=== PATIENT | female | born 1940 | race Caucasian/White ===

== ENCOUNTER → 2020-02-07 15:19 | Outpatient (BNVA) | payer MEDICARE, SELFPAY | PROVIDERS: PCP Internal Medicine; Referring Provider Internal Medicine; Visit Provider Nurse Practitioner Family | DX: Z01.818 Encounter for other preprocedural examination (principal) | CPT/HCPCS: 99212 ==

== ENCOUNTER 2020-02-08 09:47 | Outpatient (REF) | payer MEDICARE, SELFPAY ==
[2020-02-08 10:34] LABS: MANUAL DIFF FLAG NO
[2020-02-08 10:38] LABS: Basophils Percent Auto 0.7 % (0-2); Eosinophils Absolute Auto 0.2 X10*3/uL (0.0-0.4); Eosinophils Percent Auto 2.6 % (0-4); Hematocrit 32.7 % (37-47); Hemoglobin 10.5 g/dl (12.0-16.0); Imm Gran Abs Auto 0.08 X10*3/uL (0.00-0.03); Imm Gran Pct Auto 1.4 % (0.0-0.4); Lymphocytes Absolute Auto 1.6 X10*3/uL (1.2-4.9); Lymphocytes Percent Auto 27.2 % (20-40); Mean Corpuscular HGB Conc 32.1 g/dl (31.0-35.0); Mean Corpuscular Hemoglobin 30.9 pg (27.0-33.0); Mean Corpuscular Volume 96.2 fL (80-98); Mean Platelet Volume 10.3 fL (9.4-12.3); Monocytes Absolute Auto 0.7 X10*3/uL (0.1-1.2); Monocytes Percent Auto 11.3 % (2-11); Neutrophils Absolute Auto 3.3 X10*3/uL (2.0-8.3); Neutrophils Percent Auto 56.8 % (45-73); Platelet Count 197 X10*3/uL (160-400); White Blood Count 5.9 X10*3/uL (4.8-10.8)
[2020-02-08 11:03] LABS: Alanine Aminotransferase 13 U/L (0-31); Albumin Level 4.3 g/dL (3.5-5.0); Alkaline Phosphatase 61 U/L (39-117); Anion Gap 13 (12-20); Aspartate Amino Transferase 15 U/L (5-31); Bilirubin Total 0.4 mg/dL (0.0-1.0); Blood Urea Nitrogen 17 mg/dL (9-16); Calcium 8.4 mg/dL (8.4-10.2); Carbon Dioxide 25 mmol/L (22-29); Chloride 106 mmol/L (96-108); Cholesterol 168 mg/dL; Estimated Average Glucose 120 mg/dL; Estimated Glomerular Filt Rate 46; Glucose Fasting 105 mg/dL (60-99); HDL Cholesterol 40 mg/dL; Hemoglobin A1c % 5.8 %; LDL Cholesterol Calculated 76 mg/dl; Potassium 4.3 mmol/l (3.3-5.1); Sodium 140 mmol/L (135-145); Total Protein 7.3 g/dL (6.5-8.0); Triglycerides 263 mg/dL
[2020-02-08 11:06] LABS: Creatinine Urine 54.39 mg/dL
[2020-02-08 11:09] LABS: C Reactive Protein 0.18 mg/dL (< or = 0.50)
[2020-02-08 11:20] LABS: Erythrocyte Sedimentation Rate 38 MM/HR (0-20)
[2020-02-08 12:06] LABS: Reflex LDLD? No
[2020-02-14 21:37] LABS: Fructosamine 239 umol/L (205-285)
== END 2020-02-08 09:48 | disposition home or self-care (01) ==
LOC: HO.LAB 09:47
PROVIDERS: Absent Provider Nurse Practitioner Gerontology; PCP Internal Medicine; Visit Provider Student in an Organized Health Care Education/Training Program
DX: E78.00 Pure hypercholesterolemia, unspecified (principal); E11.9 Type 2 diabetes mellitus without complications; R53.82 Chronic fatigue, unspecified; M13.80 Other specified arthritis, unspecified site; M17.0 Bilateral primary osteoarthritis of knee; Z79.899 Other long term (current) drug therapy; E11.42 Type 2 diabetes mellitus with diabetic polyneuropathy
CPT/HCPCS: 36415; 80053; 80061; 82043; 82985; 83036; 85025; 85652; 86140

== ENCOUNTER 2020-03-09 09:03 | Outpatient (REF) | payer MEDICARE, SELFPAY ==
[2020-03-09 10:07] LABS: MANUAL DIFF FLAG NO
[2020-03-09 10:17] LABS: Basophils Percent Auto 0.4 % (0-2); Eosinophils Absolute Auto 0.2 X10*3/uL (0.0-0.4); Eosinophils Percent Auto 2.8 % (0-4); Hematocrit 34.7 % (37-47); Imm Gran Abs Auto 0.02 X10*3/uL (0.00-0.03); Imm Gran Pct Auto 0.4 % (0.0-0.4); Lymphocytes Absolute Auto 1.8 X10*3/uL (1.2-4.9); Lymphocytes Percent Auto 32.3 % (20-40); Mean Corpuscular HGB Conc 31.7 g/dl (31.0-35.0); Mean Corpuscular Hemoglobin 30.6 pg (27.0-33.0); Mean Corpuscular Volume 96.7 fL (80-98); Mean Platelet Volume 10.4 fL (9.4-12.3); Monocytes Absolute Auto 0.6 X10*3/uL (0.1-1.2); Monocytes Percent Auto 10.7 % (2-11); Neutrophils Absolute Auto 2.9 X10*3/uL (2.0-8.3); Neutrophils Percent Auto 53.4 % (45-73); Platelet Count 234 X10*3/uL (160-400); Red Blood Count 3.59 X10*6/uL (4.20-5.50); Red Cell Distribution Width 15.6 % (11.0-16.0); White Blood Count 5.4 X10*3/uL (4.8-10.8)
[2020-03-09 10:45] LABS: Alanine Aminotransferase 24 U/L (0-31); Albumin Level 4.4 g/dL (3.5-5.0); Alkaline Phosphatase 72 U/L (39-117); Anion Gap 13 (12-20); Aspartate Amino Transferase 25 U/L (5-31); Bilirubin Total 0.6 mg/dL (0.0-1.0); Blood Urea Nitrogen 19 mg/dL (9-16); C Reactive Protein 0.33 mg/dL (< or = 0.50); Calcium 9.5 mg/dL (8.4-10.2); Carbon Dioxide 27 mmol/L (22-29); Chloride 106 mmol/L (96-108); Estimated Glomerular Filt Rate 41; Glucose Random 100 mg/dL (60-115); Potassium 4.9 mmol/l (3.3-5.1); Sodium 141 mmol/L (135-145); Total Protein 7.6 g/dL (6.5-8.0)
[2020-03-09 10:58] LABS: Erythrocyte Sedimentation Rate 27 MM/HR (0-20)
== END 2020-03-09 09:04 | disposition home or self-care (01) ==
LOC: HO.LAB 09:03
PROVIDERS: PCP Internal Medicine; Visit Provider Student in an Organized Health Care Education/Training Program
DX: M13.80 Other specified arthritis, unspecified site (principal); Z79.899 Other long term (current) drug therapy
CPT/HCPCS: 36415; 80053; 85025; 85652; 86140

== ENCOUNTER 2020-03-21 12:40 | Outpatient (REF) | payer MEDICARE, SELFPAY ==
--- NOTE | 2020-03-21 12:44 | MM_ITS ---
EXAMINATION: MM SCREENING DIGITAL BREAST TOMOSYNTHESIS, BILATERAL CLINICAL INFORMATION: Screening. Asymptomatic. The lifetime risk of breast cancer based on the Tyrer-Cuzick Model is 2%. COMPARISON: Mammography: 08/28/2018, 08/13/2019 TECHNIQUE: Digital breast tomosynthesis is performed in both the craniocaudal and mediolateral oblique views along with computer-aided detection (CAD). Synthesized 2D images are generated from the tomosynthesis. FINDINGS: There are scattered areas of fibroglandular density (ACR BI-RADS breast composition Category b). There are no significant masses, abnormal calcifications, or other abnormalities. Parenchymal pattern is similar to prior studies. No developing density. Incidental bilateral vascular calcifications and several stable groups round calcifications again seen on the right. MM/MM tomosynthesis screening BI IMPRESSION: No significant changes from prior studies. ASSESSMENT: BI-RADS 2: Benign RECOMMENDATION: Routine annual mammography screening. This patient's information was entered into a reminder system with a target due date for their next mammogram.
== END 2020-03-21 12:41 | disposition home or self-care (01) ==
LOC: HO.MAMMO 12:40
PROVIDERS: PCP Internal Medicine; Visit Provider Internal Medicine
DX: Z12.31 Encounter for screening mammogram for malignant neoplasm of breast (principal)
CPT/HCPCS: 77063; 77067

== ENCOUNTER 2020-04-10 10:36 | Outpatient (REF) | payer MEDICARE, SELFPAY | END 2020-04-10 10:37 | disposition home or self-care (01) | LOC: HO.LAB 10:36 | PROVIDERS: Visit Provider Internal Medicine | DX: Z20.822 Contact with and (suspected) exposure to COVID-19 (principal) | CPT/HCPCS: 36415; C9803; U0003 ==

== ENCOUNTER 2020-05-15 11:40 | Outpatient (REF) | payer MEDICARE, SELFPAY ==
[2020-05-15 13:45] LABS: Anion Gap 15 (12-20); Blood Urea Nitrogen 34 mg/dL (9-16); Calcium 9.4 mg/dL (8.4-10.2); Carbon Dioxide 25 mmol/L (22-29); Chloride 104 mmol/L (96-108); Estimated Glomerular Filt Rate 30; Potassium 5.1 mmol/L (3.3-5.1); Sodium 139 mmol/L (135-145)
== END 2020-05-15 11:41 | disposition home or self-care (01) ==
LOC: HO.LAB 11:40
PROVIDERS: PCP Internal Medicine; Visit Provider Internal Medicine Hypertension Specialist
DX: E11.22 Type 2 diabetes mellitus with diabetic chronic kidney disease (principal); I13.10 Hypertensive heart and chronic kidney disease without heart failure, with stage 1 through stage 4 chronic kidney disease, or unspecified chronic kidney disease; N18.30 Chronic kidney disease, stage 3 unspecified
CPT/HCPCS: 36415; 80051; 82310; 82565; 84520

== ENCOUNTER 2020-05-30 06:23 | Day surgery (SDC) | payer MEDICARE, SELFPAY ==
--- NOTE | 2020-05-29 09:44 | HO.ANESPROP2 ---
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 (Acute) Seronegative rheumatoid arthritis (Acute) Type 2 diabetes mellitus with diabetic polyneuropathy (Acute) Essential hypertension (Acute) Hyperlipidemia LDL goal <100 (Acute) Past Medical History Medical History (Updated 05/29/20 @ 09:46 by Nabila Ott) Anemia of chronic disease Diabetes mellitus Essential hypertension GERD (gastroesophageal reflux disease) HTN (hypertension) Hypercholesteremia Hyperlipidemia LDL goal <100 Hypothyroid Osteoporosis Primary tongue squamous cell carcinoma Rheumatoid arthritis 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 Family History Family History Father Hx of colon cancer, stage IV Stomach cancer Mother Hypertension Maternal Aunt Vaginal cancer Surgical History Surgical History (Updated 05/25/20 @ 11:11 by Zaida Roberto) History of colonoscopy History of tubal ligation Hx of blepharoplasty Hx of cataract extraction Hx of hysterectomy Hx of squamous cell carcinoma excision Social History Social History Alcohol intake: never Smoking Status: Never smoker Second Hand Smoke Exposure: No Use of substances other than those prescribed or required for medical reasons: No Advance Directives: No Advance Directives Information Provided: Yes Meds Allergies Allergy/AdvReac Type Severity Reaction Status Date / Time ibuprofen Allergy Unknown Eye Verified 04/26/20 11:23 Swelling Home Medications Medication Instructions Recorded Confirmed Last Taken Type aspirin 81 mg tablet,delayed 81 mg PO DAILY 02/07/20 05/25/20 Unknown History release folic acid 1 mg tablet 1 mg PO DAILY 02/07/20 05/25/20 Unknown History trazodone 50 mg tablet 25 mg PO BEDTIME PRN 02/07/20 05/25/20 Unknown History bisacodyl 5 mg tablet,delayed 10 mg PO ONCE 02/18/20 04/26/20 Unknown History release methotrexate sodium 2.5 mg tablet 10 mg PO QWEEK tab 03/15/20 05/25/20 Unknown History Exam Exam Date and Time: May 29, 2020 0944 Pertinent Lab Results Pertinent Lab Results: Laboratory Tests 03/09/20 05/15/20 09:19 11:50 WBC 5.4 Hgb 11.0 L Hct 34.7 L Plt Count 234 Sodium 139 Potassium 5.1 Chloride 104 Carbon Dioxide 25 BUN 34 H D Creatinine 1.62 H Narrative Narrative: EKG 12/2019 NSR Assessment and Plan Assessment Anesthesia Assessment: Chart Reviewed Documented by User: Geri García 05/30/20 07:14 [facility] Past Medical History Medical History (Updated 05/29/20 @ 09:46 by Nabila Ott) Anemia of chronic disease Diabetes mellitus Essential hypertension GERD (gastroesophageal reflux disease) HTN (hypertension) Hypercholesteremia Hyperlipidemia LDL goal <100 Hypothyroid Osteoporosis Primary tongue squamous cell carcinoma Rheumatoid arthritis 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 Family History Family History Father Hx of colon cancer, stage IV Stomach cancer Mother Hypertension Maternal Aunt Vaginal cancer Surgical History Surgical History (Updated 05/25/20 @ 11:11 by Zaida Roberto) History of colonoscopy History of tubal ligation Hx of blepharoplasty Hx of cataract extraction Hx of hysterectomy Hx of squamous cell carcinoma excision Social History Social History Alcohol intake: never Smoking Status: Never smoker Second Hand Smoke Exposure: No Use of substances other than those prescribed or required for medical reasons: No Advance Directives: No Advance Directives Information Provided: Yes Meds Allergies Allergy/AdvReac Type Severity Reaction Status Date / Time ibuprofen Allergy Unknown Eye Verified 04/26/20 11:23 Swelling Home Medications Medication Instructions Recorded Confirmed Last Taken Type aspirin 81 mg tablet,delayed 81 mg PO DAILY 02/07/20 05/25/20 Unknown History release folic acid 1 mg tablet 1 mg PO DAILY 02/07/20 05/25/20 Unknown History trazodone 50 mg tablet 25 mg PO BEDTIME PRN 02/07/20 05/25/20 Unknown History bisacodyl 5 mg tablet,delayed 10 mg PO ONCE 02/18/20 04/26/20 Unknown History release methotrexate sodium 2.5 mg tablet 10 mg PO QWEEK tab 03/15/20 05/25/20 Unknown History Exam Airway Mallampati Class: II TM Dist: >3cm Neck ROM: Full Denture: Upper Heart: RRR Lungs: CTA BL Assessment and Plan Assessment Anesthesia Assessment: Anesthesia Plan Discussed Final Anesthetic Review NPO: Yes ASA Class: II Final Preanesthetic Review: No Changes in Pt Med Stat and Consent Obtained/Reviewed Patient Risk: Intermediate Procedure Risk: Intermediate Anesthetic Plan Anesthetic Plan: MAC: Disposition: Standard PACU
[2020-05-30 06:49] VITALS: BP 167/72; PULSE 84; RESP 18; TEMP 36.9; O2SAT 99; BMI 27.6
[2020-05-30 07:05] LABS: Glucose, Whole Blood 103 mg/dL (60-115)
--- NOTE | 2020-05-30 07:16 | W.PM.OPN ---
Operative Note Operative Note Date of Service: 05/30/20 Narrative: Pre-op diagnosis: Colon cancer screening Post-op diagnosis: other (Colon polyps, diverticulosis, hemorrhoids) Procedure: COLONOSCOPY TILL CECUM WITH BIOPSIES AND SNARE POLYPECTOMY Consent: Indications for the procedure and potential complications of bleeding, perforation, reaction to medications and missed diagnosis were discussed with the patient and informed consent was obtained. Instrument: Olympus PCF H 190 L variable stiffness pediatric colonoscope Monitoring: Vital signs and clinical assessment, intermittent blood pressure monitoring, continuous EKG monitoring, Pulse oximetry and Carbon Dioxide monitoring were done throughout the procedure. Colon withdrawl time was 18 minutes. Procedure: The patient was placed in the left lateral decubitis position and pre-procedure medications were administered. After a digital rectal examination of the ano-rectum, the video colonoscope was inserted into the rectum and advanced through the colon to the cecum. The colonoscope was slowly withdrawn in a retrograde panoramic fashion and the colon mucosa was carefully examined including a retroflexed view of the rectum. Findings and interventions are described below. Procedure Difficulty: There was narrowing due to severe diverticulosis with narrowing/spasm at 25-30 cm which was navigated with some difficulty. Patient was placed in the supine position which allowed scope passage through the area of narrowing. Findings: Terminal Ileum: Not evaluated Cecum: A 9-10 mm sessile polyp removed with a cold snare - polyp was not retrieved. Four 3-6 mm diminutive appearing polyps removed with the cold biopsy. Ascending Colon: Normal Transverse Colon: Normal Descending Colon: Moderate diverticulosis. Sigmoid Colon: A 4-5 mm diminutive appearing polyp removed with cold biopsy. Severe diverticulosis with luminal narrowing. Rectum: Normal Ano-rectum: Moderate internal hemorrhoids and perianal skin tags. Colon preparation: Good after some irrigation Impression and Post Procedure Diagnosis: Colonoscopy Findings: Six small polyps removed - 1 polyp was not retrieved. Moderate to severe diverticulosis seen in the left colon Moderate hemorrhoids on retroflexed exam. Plan: Await pathology results Patient has an appointment on 06/13/20 in the [facility] with Marisol Medina FNP-AYSE. Repeat Colonoscopy interval based on path results - in 3-5 years if polyps are adenomatous and 10 years if polyps are hyperplastic. Above findings were reviewed with the patient and colon polyps and diverticulosis handouts were given in the discharge area Surgeon: Radha Parish MD Anesthesia: MAC (Dr Nelson) Estimated blood loss (mL): 0 Pathology: other (A. Cecal polyps x 4, B. SC polyp x 1) Condition: stable Disposition: PACU
--- NOTE | 2020-05-30 07:16 | MHC.SHP ---
Pre-Procedural Eval Section A The patient is an INPATIENT: No The History & Physical has been completed within 30 days and I have reviewed it.: No Section B Chief Complaint: screening Details of Present Illness: Colon cancer screening, family history of colon cancer Relevant Family History (Specify if Yes): Yes Relevant Social History: None Present Medications: see Short Stay Collaborative assessment Medical History: Significant History (Diabetes mellitus HTN (hypertension) Hypercholesteremia Primary tongue squamous cell carcinoma) History of Previous Operations: Relevant previous surgery/procedure and date(s) (Colonoscopy, tongue surgery) Allergies: Allergies Allergy/AdvReac Type Severity Reaction Status Date / Time ibuprofen Allergy Unknown Eye Verified 04/26/20 11:23 Swelling Review of Systems Sugical H&P ROS: Negative: Constitution, Cardiovascular, Respiratory and Gastrointestinal Exam Surgical H&P Exam: Normal: Heart, Normal: Lungs, Normal: Extremities and Normal: Abdomen Plan Diagnosis/Plan: Unchanged I have reviewed the history and physical and performed a pertinent physical examination on my patient. No changes have occurred unless specified.
[2020-05-30] MEDS: Lactated Ringers 1,000 ML 100 ML IVCONT (07:34)
[2020-05-30 08:23] VITALS: BP 101/55; PULSE 76; RESP 16; TEMP 36.4; O2SAT 99
[2020-05-30 08:38] VITALS: BP 126/74; PULSE 72; RESP 18; TEMP 36.4; O2SAT 100
== END 2020-05-30 09:20 | disposition home or self-care (01) ==
PROVIDERS: PCP Internal Medicine; Visit Provider Internal Medicine Gastroenterology
PROC: 0DJD8ZZ Inspection of Lower Intestinal Tract, Via Natural or Artificial Opening Endoscopic (ICD-10-PCS; CPT 45378; principal; 2020-05-30 07:30)
DX: Z12.11 Encounter for screening for malignant neoplasm of colon (principal); Z80.0 Family history of malignant neoplasm of digestive organs; D12.0 Benign neoplasm of cecum; K63.5 Polyp of colon; K57.30 Diverticulosis of large intestine without perforation or abscess without bleeding; K64.8 Other hemorrhoids; K64.4 Residual hemorrhoidal skin tags; E11.9 Type 2 diabetes mellitus without complications; D63.8 Anemia in other chronic diseases classified elsewhere; I10 Essential (primary) hypertension; K21.9 Gastro-esophageal reflux disease without esophagitis; C02.9 Malignant neoplasm of tongue, unspecified; M06.00 Rheumatoid arthritis without rheumatoid factor, unspecified site; Z79.84 Long term (current) use of oral hypoglycemic drugs; Z79.82 Long term (current) use of aspirin; Z79.899 Other long term (current) drug therapy
CPT/HCPCS: 45385; 45380; 82947; 88305

== ENCOUNTER 2020-06-02 21:01 | Emergency (ER) | payer MEDICARE, SELFPAY ==
[2020-06-02 21:19] VITALS: BP 185/91; PULSE 94; RESP 16; TEMP 37; O2SAT 99; BMI 29.4
[2020-06-02 22:33] VITALS: BP 165/79; PULSE 82; RESP 16; O2SAT 100
--- NOTE | 2020-06-02 22:42 | ECG_ITS ---
Test Reason : CHEST PAIN Blood Pressure : / mmHG Vent. Rate : 092 BPM Atrial Rate : 092 BPM P-R Int : 168 ms QRS Dur : 096 ms QT Int : 346 ms P-R-T Axes : 050 -06 041 degrees QTc Int : 427 ms Normal sinus rhythm Possible Left atrial enlargement Left ventricular hypertrophy Abnormal ECG When compared to the previous EKG of No significant changes seen Referred By: Mihaela De La Rosa Electronically Signed By:VITALY TEJEDA MD
--- NOTE | 2020-06-02 22:44 | ED.CHESTPAIN ---
HPI - Chest Pain General Chief Complaint: Chest Pain Stated Complaint: nausea,shaking Time Seen by Provider: 06/02/20 22:14 Source: patient Mode of arrival: ambulatory Limitations: no limitations History of Present Illness HPI narrative: Appearance: Alert. Oriented X3. No acute distress. Eyes: Pupils equal, round and reactive to light. ENT: Pharynx normal. Neck: Normal inspection. Neck supple. No lymph nodes noted. No crepitus CVS: Normal heart rate and rhythm. Pulses normal. Normal S1 and S2 Respiratory: No respiratory distress. Breath sounds normal. No Wheezing. No rales Abdomen: Soft and nontender. No rigidity. No distention. good BS x4 Skin: Skin warm and dry. Normal skin color. Normal skin turgor. Extremities: No lower extremity edema. No lower extremity edema. No Lacerations. No Rash Neuro: Oriented X 3. No motor deficit. No sensory deficit. Moving all extermities. No slurred speech.Patient comes to the emergency room complaining of sharp intermittent chest pain. Patient states around 20:00 she had multiple episodes of sharp chest pain. Patient states it feels like something poked her in the chest on the left side, lasted for a few seconds and it self-resolved. At this time, patient has no symptoms. Patient denies diaphoresis, no shortness of breath, no abdominal pain. Related Data Home Medications Medication Instructions Recorded Confirmed aspirin 81 mg tablet,delayed 81 mg PO DAILY 02/07/20 05/25/20 release folic acid 1 mg tablet 1 mg PO DAILY 02/07/20 05/25/20 trazodone 50 mg tablet 25 mg PO BEDTIME PRN 02/07/20 05/25/20 methotrexate sodium 2.5 mg tablet 10 mg PO QWEEK tab 03/15/20 05/25/20 Previous Rx's Medication Instructions Recorded metformin 500 mg tablet 500 mg PO DAILY #90 tab 02/18/20 acetaminophen 325 mg tablet 325 mg PO Q6H PRN #120 tab 02/24/20 etanercept 50 mg/mL (1 mL) 50 mg SUBCUT QWEEK #4 ml 03/07/20 subcutaneous pen injector omeprazole 20 mg capsule,delayed 20 mg PO DAILY #90 cap 04/13/20 release atorvastatin 10 mg tablet 10 mg PO QPM 90 Days #90 tab 04/26/20 ferrous sulfate 325 mg (65 mg 325 mg PO DAILY 90 Days #90 tab 04/26/20 iron) tablet,delayed release lisinopril 40 mg tablet 40 mg PO DAILY #90 tab 04/26/20 Allergies Allergy/AdvReac Type Severity Reaction Status Date / Time ibuprofen Allergy Unknown Eye Verified 04/26/20 11:23 Swelling Review of Systems Review of Systems: Constitutional : No Weight loss, No Fever, No Chills, No Night Sweats, No Fatigue, No Malaise ENT/Mouth : No Hearing loss, No Ear Pain, No Nasal Congestion, No Sinus Pain, No Hoarseness, No sore throat, No Rhinorrhea, No Swallowing Difficulty Eyes: No Eye Pain, No Swelling, No Redness, No Foreign Body, No Discharge, No Vision Changes Cardiovascular : Complaining of multiple episodes of sharp chest pain, nonradiating, lasting a few seconds, No SOB, No Dyspnea on Exertion, No Orthopnea, No Edema, No Palpitations Respiratory : No Cough, No Sputum, No Wheezing, No Smoke Exposure, No Dyspnea Gastrointestinal : No Nausea, No Vomiting, No Diarrhea, No Constipation, No abdominal Pain, No Hematochezia, No Melena Genitourinary : no irregular bleeding, No Dysuria, No Urinary Frequency, No Hematuria, No Urinary Incontinence, No Urgency, No Flank Pain, No Urinary Flow Changes, No Hesitancy Musculoskeletal : No joint pain, No Myalgias, No Joint Swelling Skin : No Skin Lesions, No rash Neuro : No Weakness, No Numbness, No Paresthesias, No Loss of Consciousness, No Dizziness, No Headache Psych : No Anxiety/Panic, No Depression, No SI/HI/AH/VH, No Social Issues, Heme/Lymph: No Bruising, No Bleeding,No Lymphadenopathy Endocrine : No Polyuria, No Polydipsia, No Temperature Intolerance [facility] Past Medical History Medical History Anemia of chronic disease Diabetes mellitus Essential hypertension GERD (gastroesophageal reflux disease) HTN (hypertension) Hypercholesteremia Hyperlipidemia LDL goal <100 Hypothyroid Osteoporosis Primary tongue squamous cell carcinoma Rheumatoid arthritis 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 Surgical History History of colonoscopy History of tubal ligation Hx of blepharoplasty Hx of cataract extraction Hx of hysterectomy Hx of squamous cell carcinoma excision Family History Family History Father Hx of colon cancer, stage IV Stomach cancer Mother Hypertension Maternal Aunt Vaginal cancer Social History Social History Alcohol intake: never Smoking Status: Never smoker Second Hand Smoke Exposure: No Advance Directives: No Advance Directives Information Provided: Yes Physical Exam Vital Signs: Vital Signs: Last Vital Signs Temp 98.6 F 06/02/20 21:19 Pulse 82 06/02/20 22:33 Resp 16 06/02/20 22:33 BP 165/79 H 06/02/20 22:33 Pulse Ox 100 06/02/20 22:33 Body Mass Index 29.4 Appearance: Alert. Oriented X3. No acute distress. Mildly anxious Eyes: Pupils equal, round and reactive to light. ENT: Pharynx normal. Neck: Normal inspection. Neck supple. No lymph nodes noted. No crepitus CVS: Normal heart rate and rhythm. Pulses normal. Normal S1 and S2 Respiratory: No respiratory distress. Breath sounds normal. No Wheezing. No rales Abdomen: Soft and nontender. No rigidity. No distention. good BS x4 Skin: Skin warm and dry. Normal skin color. Normal skin turgor. Extremities: No lower extremity edema. No lower extremity edema. No Lacerations. No Rash Neuro: Oriented X 3. No motor deficit. No sensory deficit. Moving all extermities. No slurred speech. Course Course Course Narrative: Patient's initial troponin 6.0, no EKG changes. Patient's troponin number the 2 scheduled at 02:00. Until now, patient remains asymptomatic. sign out given to Dr. Cayla YEN - Chest Pain Lab Data Result diagrams: 06/02/20 22:58 06/02/20 22:58 Labs: Lab Results 06/02/20 06/02/20 06/02/20 Range/Units 22:58 22:58 22:58 WBC 6.5 (4.8-10.8) X10*3/uL RBC 3.60 L (4.20-5.50) X10*6/uL Hgb 10.9 L (12.0-16.0) g/dl Hct 33.5 L (37-47) % MCV 93.1 (80-98) fL MCH 30.3 (27.0-33.0) pg MCHC 32.5 (31.0-35.0) g/dl RDW 14.7 (11.0-16.0) % Plt Count 195 (160-400) X10*3/uL MPV 10.2 (9.4-12.3) fL Immature Gran % (Auto) 0.3 (0.0-0.4) % Neut % (Auto) 64.5 (45-73) % Lymph % (Auto) 21.1 (20-40) % Franklin % (Auto) 11.6 H (2-11) % Eos % (Auto) 2.2 (0-4) % Baso % (Auto) 0.3 (0-2) % Lymph # (Auto) 1.4 (1.2-4.9) X10*3/uL Franklin # (Auto) 0.8 (0.1-1.2) X10*3/uL Eos # (Auto) 0.1 (0.0-0.4) X10*3/uL Baso # (Auto) 0.0 (0.0-0.2) X10*3/uL Abs Immat Gran (auto) 0.02 (0.00-0.03) X10*3/uL Absolute Neuts (auto) 4.2 (2.0-8.3) X10*3/uL Absolute Nucleated RBC 0.000 (0.0-0.012) X10*3/uL Nucleated RBC % (auto) 0.0 (0.0-0.2) /100WBC PT 12.5 (10.8-13.0) SEC INR 1.1 (0.9-1.1) Sodium 140 (135-145) mmol/L Potassium 5.1 (3.3-5.1) mmol/L Chloride 106 (96-108) mmol/L Carbon Dioxide 25 (22-29) mmol/L Anion Gap 14 (12-20) BUN 20 H (9-16) mg/dL Creatinine 1.20 (0.5-1.4) mg/dL Estim Creat Clear Calc 34.3 Estimated GFR 43 Random Glucose 103 (60-115) mg/dL Calcium 9.2 (8.4-10.2) mg/dL Troponin I High Sens (<3.5-17.0) ng/L 06/02/20 Range/Units 22:59 WBC (4.8-10.8) X10*3/uL RBC (4.20-5.50) X10*6/uL Hgb (12.0-16.0) g/dl Hct (37-47) % MCV (80-98) fL MCH (27.0-33.0) pg MCHC (31.0-35.0) g/dl RDW (11.0-16.0) % Plt Count (160-400) X10*3/uL MPV (9.4-12.3) fL Immature Gran % (Auto) (0.0-0.4) % Neut % (Auto) (45-73) % Lymph % (Auto) (20-40) % Franklin % (Auto) (2-11) % Eos % (Auto) (0-4) % Baso % (Auto) (0-2) % Lymph # (Auto) (1.2-4.9) X10*3/uL Franklin # (Auto) (0.1-1.2) X10*3/uL Eos # (Auto) (0.0-0.4) X10*3/uL Baso # (Auto) (0.0-0.2) X10*3/uL Abs Immat Gran (auto) (0.00-0.03) X10*3/uL Absolute Neuts (auto) (2.0-8.3) X10*3/uL Absolute Nucleated RBC (0.0-0.012) X10*3/uL Nucleated RBC % (auto) (0.0-0.2) /100WBC PT (10.8-13.0) SEC INR (0.9-1.1) Sodium (135-145) mmol/L Potassium (3.3-5.1) mmol/L Chloride (96-108) mmol/L Carbon Dioxide (22-29) mmol/L Anion Gap (12-20) BUN (9-16) mg/dL Creatinine (0.5-1.4) mg/dL Estim Creat Clear Calc Estimated GFR Random Glucose (60-115) mg/dL Calcium (8.4-10.2) mg/dL Troponin I High Sens 6.0 (<3.5-17.0) ng/L ECG Data ECG #1: Attestation: I personally reviewed and interpreted this ECG as follows: (Sinus rhythm, heart rate 92, no ST segment depressions or elevations, no T-wave inversions, QTC 427) Discharge Plan Discharge Clinical Impression: Atypical chest pain Patient Disposition: Home, Self-Care Instructions: Chest Pain (ED) Additional Instructions: If you continue having chest pain, you may need a stress test. Please follow-up with your primary care physician tomorrow. If you have any worsening or new symptoms, please return to the emergency room or call 911 Prescriptions: No Action acetaminophen 325 mg tablet 325 mg PO Q6H PRN (Reason: pain) Qty: 120 RF: 2 Enbrel SureClick 50 mg/mL (1 mL) pen injector 50 mg subcut QWEEK Qty: 4 RF: 3 omeprazole 20 mg capsule,delayed release(DR/EC) 20 mg PO DAILY Qty: 90 RF: 1 atorvastatin 10 mg tablet 10 mg PO QPM 90 Days Qty: 90 RF: 3 ferrous sulfate 325 mg (65 mg iron) tablet,delayed release (DR/EC) 325 mg PO DAILY 90 Days Qty: 90 RF: 3 lisinopril 40 mg tablet 40 mg PO DAILY Qty: 90 RF: 3 metformin 500 mg tablet 500 mg PO DAILY Qty: 90 RF: 1 methotrexate sodium 2.5 mg tablet 10 mg PO QWEEK RF: 0 folic acid 1 mg tablet 1 mg PO DAILY RF: 0 aspirin [Adult Low Dose Aspirin] 81 mg tablet,delayed release (DR/EC) 81 mg PO DAILY RF: 0 trazodone 50 mg tablet 25 mg PO BEDTIME PRN (Reason: Sleep) RF: 0
[2020-06-02 23:05] LABS: MANUAL DIFF FLAG NO
[2020-06-02 23:07] LABS: Basophils Percent Auto 0.3 % (0-2); Eosinophils Absolute Auto 0.1 X10*3/uL (0.0-0.4); Eosinophils Percent Auto 2.2 % (0-4); Hematocrit 33.5 % (37-47); Hemoglobin 10.9 g/dl (12.0-16.0); Imm Gran Abs Auto 0.02 X10*3/uL (0.00-0.03); Imm Gran Pct Auto 0.3 % (0.0-0.4); Lymphocytes Absolute Auto 1.4 X10*3/uL (1.2-4.9); Lymphocytes Percent Auto 21.1 % (20-40); Mean Corpuscular HGB Conc 32.5 g/dl (31.0-35.0); Mean Corpuscular Hemoglobin 30.3 pg (27.0-33.0); Mean Corpuscular Volume 93.1 fL (80-98); Mean Platelet Volume 10.2 fL (9.4-12.3); Monocytes Absolute Auto 0.8 X10*3/uL (0.1-1.2); Monocytes Percent Auto 11.6 % (2-11); Neutrophils Absolute Auto 4.2 X10*3/uL (2.0-8.3); Neutrophils Percent Auto 64.5 % (45-73); Platelet Count 195 X10*3/uL (160-400); Red Cell Distribution Width 14.7 % (11.0-16.0); White Blood Count 6.5 X10*3/uL (4.8-10.8)
[2020-06-02 23:17] LABS: INTERNATIONAL NORM RATIO 1.1 (0.9-1.1); Prothrombin Time 12.5 SEC (10.8-13.0)
[2020-06-02 23:35] LABS: Anion Gap 14 (12-20); Blood Urea Nitrogen 20 mg/dL (9-16); Calcium 9.2 mg/dL (8.4-10.2); Carbon Dioxide 25 mmol/L (22-29); Chloride 106 mmol/L (96-108); Creatinine Clr Calc Pharmacy 34.3; Estimated Glomerular Filt Rate 43; Glucose Random 103 mg/dL (60-115); Potassium 5.1 mmol/L (3.3-5.1); Sodium 140 mmol/L (135-145)
[2020-06-03] VITALS: BP 151/86; PULSE 84; RESP 17; O2SAT 99
[2020-06-03] MEDS: Aspirin Enteric Coated 325 MG TABLET.DR PO (00:53)
[2020-06-03 02:00] VITALS: BP 146/80; PULSE 66; RESP 20; TEMP 36.7; O2SAT 98
[2020-06-03 02:55] LABS: Glucose Urine UA NEG (NEG); Leukocyte Esterase Urine TRACE (NEG); Nitrite Urine NEG (NEG); PH 6.5 (5.0-8.0); UACC Culture Trigger YES; Urine Blood TRACE (NEG); Urine Ketones NEG (NEG); Urine Protein TRACE MG/DL (NEG-TRACE)
[2020-06-03 02:57] LABS: Appearance Urine CLEAR; Color Urine STRAW
[2020-06-03 03:16] LABS: Troponin-I High Sensitivity 6.4 ng/L (<3.5-17.0)
[2020-06-03 03:42] LABS: Bacteria Urine TRACE /LPF; RBC Urine 0-2 /HPF (0); Squamous Epithelial Cell Urine 2+ /LPF; UACC CULT YES; WBC Urine 0-2 /HPF (0-4)
[2020-06-03 04:00] VITALS: BP 150/70; PULSE 70; RESP 16; O2SAT 97
== END 2020-06-03 05:55 | disposition home or self-care (01) ==
PROVIDERS: Emergency Provider Emergency Medicine; PCP Internal Medicine
DX: R07.9 Chest pain, unspecified (principal); E11.9 Type 2 diabetes mellitus without complications; I10 Essential (primary) hypertension; E78.5 Hyperlipidemia, unspecified; K21.9 Gastro-esophageal reflux disease without esophagitis
CPT/HCPCS: 36415; 80048; 81001; 84484; 85025; 85610; 87086; 93005; 99283; 99284

== ENCOUNTER → 2020-06-13 13:26 | Outpatient (BNVA) | payer MEDICARE, SELFPAY | PROVIDERS: PCP Internal Medicine; Visit Provider Nurse Practitioner Family | DX: Z13.89 Encounter for screening for other disorder (principal) | CPT/HCPCS: Q3014 ==

== ENCOUNTER → 2020-07-05 14:21 | Outpatient (BNVA) | payer MEDICARE, SELFPAY | PROVIDERS: PCP Internal Medicine; Visit Provider Internal Medicine Cardiovascular Disease | DX: I10 Essential (primary) hypertension (principal); R00.2 Palpitations | CPT/HCPCS: 93005; 99202 ==

== ENCOUNTER → 2020-07-14 10:16 | Outpatient (BNVA) | payer MEDICARE, SELFPAY | PROVIDERS: Visit Provider Student in an Organized Health Care Education/Training Program | DX: M06.00 Rheumatoid arthritis without rheumatoid factor, unspecified site (principal); Z79.899 Other long term (current) drug therapy | CPT/HCPCS: 99212 ==

== ENCOUNTER 2020-08-11 11:17 | Outpatient (REF) | payer MEDICARE, SELFPAY ==
[2020-08-11 13:25] LABS: MANUAL DIFF FLAG NO
[2020-08-11 13:30] LABS: Basophils Percent Auto 0.7 % (0-2); Eosinophils Absolute Auto 0.1 X10*3/uL (0.0-0.4); Eosinophils Percent Auto 1.7 % (0-4); Hematocrit 35.9 % (37-47); Hemoglobin 11.5 g/dl (12.0-16.0); Imm Gran Abs Auto 0.02 X10*3/uL (0.00-0.03); Imm Gran Pct Auto 0.4 % (0.0-0.4); Lymphocytes Absolute Auto 1.5 X10*3/uL (1.2-4.9); Lymphocytes Percent Auto 27.2 % (20-40); Mean Corpuscular Hemoglobin 30.5 pg (27.0-33.0); Mean Corpuscular Volume 95.2 fL (80-98); Mean Platelet Volume 10.7 fL (9.4-12.3); Monocytes Absolute Auto 0.5 X10*3/uL (0.1-1.2); Monocytes Percent Auto 9.7 % (2-11); Neutrophils Absolute Auto 3.3 X10*3/uL (2.0-8.3); Neutrophils Percent Auto 60.3 % (45-73); Platelet Count 229 X10*3/uL (160-400); Red Blood Count 3.77 X10*6/uL (4.20-5.50); White Blood Count 5.5 X10*3/uL (4.8-10.8)
[2020-08-11 14:01] LABS: Alanine Aminotransferase 21 U/L (0-31); Albumin Level 4.6 g/dL (3.5-5.0); Alkaline Phosphatase 72 U/L (39-117); Anion Gap 16 (12-20); Aspartate Amino Transferase 16 U/L (5-31); Bilirubin Total 0.5 mg/dL (0.0-1.0); Blood Urea Nitrogen 30 mg/dL (9-16); C Reactive Protein 0.21 mg/dL (< or = 0.50); Calcium 10.5 mg/dL (8.4-10.2); Carbon Dioxide 25 mmol/L (22-29); Chloride 104 mmol/L (96-108); Estimated Glomerular Filt Rate 37; Glucose Random 90 mg/dL (60-115); Sodium 140 mmol/L (135-145); Total Protein 7.9 g/dL (6.5-8.0)
[2020-08-11 14:02] LABS: Anion Gap 14 (12-20); Blood Urea Nitrogen 29 mg/dL (9-16); Calcium 10.7 mg/dL (8.4-10.2); Carbon Dioxide 26 mmol/L (22-29); Chloride 104 mmol/L (96-108); Estimated Glomerular Filt Rate 38; Phosphorus 4.3 mg/dL (2.7-4.5); Potassium 5.1 mmol/L (3.3-5.1); Sodium 139 mmol/L (135-145)
[2020-08-11 14:18] LABS: Erythrocyte Sedimentation Rate 30 MM/HR (0-20)
[2020-08-14 13:16] LABS: Calcium (PTHI) 10.7 mg/dL (8.6-10.4); PTHI 25 pg/mL (14-64)
== END 2020-08-11 11:18 | disposition home or self-care (01) ==
LOC: HO.LAB 11:17
PROVIDERS: Student in an Organized Health Care Education/Training Program; Absent Provider Internal Medicine; PCP Internal Medicine; Referring Provider Internal Medicine Hypertension Specialist; Visit Provider Nurse Practitioner Gerontology
DX: M06.00 Rheumatoid arthritis without rheumatoid factor, unspecified site (principal); N18.31 Chronic kidney disease, stage 3a
CPT/HCPCS: 36415; 80051; 80053; 82310; 82565; 83970; 84100; 84520; 85025; 85652; 86140

== ENCOUNTER → 2020-08-18 12:54 | Outpatient (BNVA) | payer MEDICARE, SELFPAY | PROVIDERS: PCP Internal Medicine; Visit Provider Nurse Practitioner Gerontology | DX: E11.42 Type 2 diabetes mellitus with diabetic polyneuropathy (principal); E78.5 Hyperlipidemia, unspecified; I10 Essential (primary) hypertension | CPT/HCPCS: 82947; 99212 ==

== ENCOUNTER → 2020-08-25 09:22 | Outpatient (REF) | payer MEDICARE, SELFPAY ==
--- NOTE | 2020-08-25 09:26 | CA_ITS ---
Transthoracic Echocardiogram Patient (Last, First, Middle): Sydnee sU, Gender: Female Date of : 1940 Age: 80 Procedure Date: 08/25/2020 Procedure Type: Transthoracic Echocardiogram Location: OP Height: 157.48 cm Weight: 69.85 kg BSA: 1.71 m2 Heart Rate: bpm BP: 140 / 80 mmHg Home Inspector: TRISHA Loera MD: Estuardo Nye MD [employer]acing Supervisor: Arnaldo Leslie MD Symptoms: R00.2 - Palpitations Study Quality: Fair ECG Rhythm: Sinus Conclusions: - 1. Normal LV systolic function with impaired relaxation filling pattern 2. Fibrocalcific aortic valve and moderate mitral and calcification noted with normal cardiac valvular Doppler 3. Normal RV systolic pressure 4. No gross pericardial effusion Findings Left Ventricle Normal left ventricular size, thickness, and systolic function. The visually estimated ejection fraction is between 55-60%. Spectral Doppler is indicative of an impaired relaxation filling pattern. E/E prime ratio is between 8 and 15 consistent with indeterminate filling pressures. Right Ventricle Normal right ventricular cavity size and systolic function. Atria The left atrium is likely dilated. There is no evidence of interatrial shunt. The right atrium is normal in size. Aortic Valve There is mild calcification of the aortic valve. There is no aortic valve stenosis. There is no aortic valve regurgitation. Mitral Valve There is mild anterior and moderate posterior mitral leaflet thickening. There is moderate mitral annular calcification. There is trace mitral valve regurgitation. There is no mitral valve stenosis. Pulmonic Valve The pulmonic valve is likely normal. There is trace to mild pulmonic valve regurgitation. Tricuspid Valve Normal tricuspid valve structure. There is trace tricuspid valve regurgitation. The right ventricular systolic pressure is normal. The right ventricular systolic pressure is 29 mmHg. Normal right atrial pressure. There is no evidence of pulmonary hypertension. Great Vessels All visible segments of the aorta are normal in size. The pulmonary artery was not well visualized. Venous The inferior vena cava is normal in size and collapses greater than 50% with inspiration. Pericardium/Pleural There is no evidence of pericardial effusion. Prior Study Comparison No prior study available for comparison. Measurements 2D Linear Measurements IVSd: 1.16 0.6-0.9/0.6-1.0 cm LVIDd: 4.12 3.9-5.3/4.2-5.9 cm LVIDd Index: 2.41 2.4-3.2/2.2-3.1 cm/m2 LVIDs: 2.59 2.0-3.6 cm LVPWd: 1.16 0.7-1.1 cm Ao Root: 3.20 2.1-3.5 cm LA Diam: 3.30 2.7-3.8/3.0-4.0 cm LAIDs Index: 1.93 1.5-2.3 cm/m2 LV Mass: 205.04 67-162/88-224 g LV Mass Index: 119.91 43-95/49-115 g/m2 LVOT Diam: 2.00 3.0+(-)1.3 cm 2D Systolic Function EF 4C: 59.90 >55% EF 2C: 51.30 >55% Mitral Valve MV Pk E: 0.56 MV PK A: 0.94 MV Decel Time: 227.00 E/A: 0.60 E'Lateral: 6.42 E'Medial: 3.59 E/E' Med: 15.70 E/E' Lat: 8.80 PHT: 67.00 MVA PHT: 3.28 Decel Ocean: 2.48 Aortic Valve AoV Pk Ivan: 1.66 AoV Mn Ivan: 1.09 AoV VTI: 0.31 AoV Pk Grad: 11.00 Aov Mn Grad: 5.00 FORD Cont.VTI: 2.05 LVOT LVOT Pk Ivan: 1.06 LVOT Mn Ivan: 0.73 LVOT VTI: 0.20 LVOT Pk Grad: 4.00 LVOT Mn Grad: 2.00 LVOT Diam: 2.00 LVOT Area: 3.14 Diastolic Function MV Pk E: 0.56 MV Pk A: 0.94 E/A: 0.60 E'Medial: 3.59 E/E' Med: 15.70 E' Laterial: 6.42 E/E' Lat: 8.80 Tricuspid Valve TR Pk Ivan: 2.54 TR Pk Grad: 26.00 RA Press: 3.00 RVSP: 29.00 Great Vessels Aorta Ao Root-2D: 3.20 2.0-3.7 cm Ao Asc: 3.40 2.1-3.4 cm Ao Arch: 2.80 Updated in Other Vendor System with Status of Final Arnaldo Leslie MD electronically signed on 08/26/2020 12:28:16 PM with status of Final
--- NOTE | 2020-08-25 09:30 | ECG_ITS ---
Hook-up date: 2020-08-25 10:33:00 Duration: 47:59:00 Test Indications: PALPITATIONS Medications: 984112 QRS complexes 101 Ventricular ectopics which represent <1 % of total QRS comp. 332 Supraventricular ectopics which represent <1 % of total QRS comp. * Paced QRS complexs which represent % of total QRS comp. VENTRICULAR ECTOPY 101 Isolated 0 Bigeminal Cycles 0 Couplets 0 Runs 0 Beats in Runs * Beats LONGEST at * BPM at :: -- * Beats FASTEST at * BPM at :: -- SUPRAVENTRICULAR ECTOPY 291 Isolated 17 Couplets 2 Runs 7 Beats in Runs 4 Beats LONGEST at 107 BPM at 08:11:45 2020-08-26 4 Beats FASTEST at 107 BPM at 08:11:45 2020-08-26 HEART RATES 58 MIN at 05:41:40 2020-08-27 79 AVG 149 MAX at 09:34:25 2020-08-26 LONGEST RR 1.1600 secs at 04:34:37 2020-08-27 S-T LEVELS Channel 1 - 128 mm at 10:33:00 2020-08-25 - 128 mm at 10:33:00 2020-08-25 Channel 2 - 128 mm at 10:33:00 2020-08-25 - 128 mm at 10:33:00 2020-08-25 Channel 3 - 128 mm at 02:95:21 -- - 128 mm at 02:95:21 Underlying rhythm is sinus; Average ventricular rate 79/min; range 58-149/min; About 11% of the time, rates >100/min; Rare PACs with very brief runs; Rare PVCs; Patient did not report any symptoms in the diary Referred By: Estuardo Nye Overread By: AL JACINTO
== END ==
LOC: HO.CARD 09:22
PROVIDERS: PCP Internal Medicine; Visit Provider Internal Medicine Cardiovascular Disease
DX: R00.2 Palpitations (principal)
CPT/HCPCS: 93225; 93226; 93306

== ENCOUNTER → 2020-11-02 10:40 | Outpatient (BNVA) | payer MEDICARE, SELFPAY | PROVIDERS: PCP Internal Medicine; Referring Provider Internal Medicine; Visit Provider Internal Medicine Cardiovascular Disease | DX: R00.2 Palpitations (principal); I10 Essential (primary) hypertension | CPT/HCPCS: 99212 ==

== ENCOUNTER 2020-11-16 09:34 | Outpatient (REF) | payer MEDICARE, SELFPAY ==
[2020-11-16 09:52] LABS: MANUAL DIFF FLAG NO
[2020-11-16 10:01] LABS: Basophils Percent Auto 0.5 % (0-2); Eosinophils Absolute Auto 0.1 X10*3/uL (0.0-0.4); Eosinophils Percent Auto 2.5 % (0-4); Hematocrit 35.6 % (37-47); Hemoglobin 11.4 g/dl (12.0-16.0); Imm Gran Abs Auto 0.03 X10*3/uL (0.00-0.03); Imm Gran Pct Auto 0.5 % (0.0-0.4); Lymphocytes Absolute Auto 1.5 X10*3/uL (1.2-4.9); Mean Corpuscular Hemoglobin 30.2 pg (27.0-33.0); Mean Corpuscular Volume 94.2 fL (80-98); Mean Platelet Volume 10.6 fL (9.4-12.3); Monocytes Absolute Auto 0.6 X10*3/uL (0.1-1.2); Neutrophils Absolute Auto 3.3 X10*3/uL (2.0-8.3); Neutrophils Percent Auto 59.5 % (45-73); Platelet Count 201 X10*3/uL (160-400); Red Blood Count 3.78 X10*6/uL (4.20-5.50); Red Cell Distribution Width 14.6 % (11.0-16.0); White Blood Count 5.6 X10*3/uL (4.8-10.8)
[2020-11-16 10:21] LABS: Alanine Aminotransferase 14 U/L (0-31); Albumin Level 4.4 g/dL (3.5-5.0); Alkaline Phosphatase 66 U/L (39-117); Anion Gap 13 (12-20); Aspartate Amino Transferase 15 U/L (5-31); Bilirubin Total 0.6 mg/dL (0.0-1.0); Blood Urea Nitrogen 26 mg/dL (9-16); C Reactive Protein 0.17 mg/dL (< or = 0.50); Calcium 9.6 mg/dL (8.4-10.2); Carbon Dioxide 24 mmol/L (22-29); Chloride 107 mmol/L (96-108); Estimated Glomerular Filt Rate 33; Glucose Random 99 mg/dL (60-115); Potassium 4.7 mmol/L (3.3-5.1); Sodium 139 mmol/L (135-145); Total Protein 7.5 g/dL (6.5-8.0)
[2020-11-16 10:23] LABS: Estimated Average Glucose 114 mg/dL; Hemoglobin A1c % 5.6 %
[2020-11-16 10:44] LABS: Erythrocyte Sedimentation Rate 23 MM/HR (0-20)
[2020-11-22 07:27] LABS: Fructosamine 258 umol/L (205-285)
== END 2020-11-16 09:35 | disposition home or self-care (01) ==
LOC: HO.LAB 09:34
PROVIDERS: Nurse Practitioner Gerontology; PCP Internal Medicine; Visit Provider Student in an Organized Health Care Education/Training Program
DX: M06.00 Rheumatoid arthritis without rheumatoid factor, unspecified site (principal); E11.22 Type 2 diabetes mellitus with diabetic chronic kidney disease; N18.9 Chronic kidney disease, unspecified; E11.42 Type 2 diabetes mellitus with diabetic polyneuropathy
CPT/HCPCS: 36415; 80053; 82985; 83036; 85025; 85652; 86140

== ENCOUNTER → 2020-11-29 10:55 | Outpatient (BNVA) | payer MEDICARE, SELFPAY | PROVIDERS: PCP Internal Medicine; Visit Provider Nurse Practitioner Family | DX: M06.00 Rheumatoid arthritis without rheumatoid factor, unspecified site (principal) | CPT/HCPCS: 99212 ==

== ENCOUNTER 2020-12-19 12:44 | Outpatient (REF) | payer MEDICARE, SELFPAY ==
[2020-12-19 13:33] LABS: MANUAL DIFF FLAG NO
[2020-12-19 13:49] LABS: Basophils Absolute Auto 0.1 X10*3/uL (0.0-0.2); Basophils Percent Auto 0.8 % (0-2); Eosinophils Absolute Auto 0.1 X10*3/uL (0.0-0.4); Eosinophils Percent Auto 2.1 % (0-4); Hematocrit 34.6 % (37-47); Hemoglobin 11.2 g/dl (12.0-16.0); Imm Gran Abs Auto 0.05 X10*3/uL (0.00-0.03); Imm Gran Pct Auto 0.8 % (0.0-0.4); Lymphocytes Absolute Auto 1.7 X10*3/uL (1.2-4.9); Mean Corpuscular HGB Conc 32.4 g/dl (31.0-35.0); Mean Corpuscular Hemoglobin 30.3 pg (27.0-33.0); Mean Corpuscular Volume 93.5 fL (80-98); Mean Platelet Volume 10.8 fL (9.4-12.3); Monocytes Absolute Auto 0.7 X10*3/uL (0.1-1.2); Monocytes Percent Auto 10.9 % (2-11); Neutrophils Absolute Auto 3.7 X10*3/uL (2.0-8.3); Neutrophils Percent Auto 58.4 % (45-73); Platelet Count 199 X10*3/uL (160-400); Red Cell Distribution Width 14.1 % (11.0-16.0); White Blood Count 6.3 X10*3/uL (4.8-10.8)
[2020-12-19 19:35] LABS: Alanine Aminotransferase 14 U/L (0-31); Albumin Level 4.3 g/dL (3.5-5.0); Alkaline Phosphatase 71 U/L (39-117); Anion Gap 12 (12-20); Aspartate Amino Transferase 13 U/L (5-31); Bilirubin Total 0.6 mg/dL (0.0-1.0); Blood Urea Nitrogen 24 mg/dL (9-16); Calcium 9.2 mg/dL (8.4-10.2); Carbon Dioxide 24 mmol/L (22-29); Chloride 108 mmol/L (96-108); Estimated Glomerular Filt Rate 35; Glucose Random 136 mg/dL (60-115); Potassium 4.5 mmol/L (3.3-5.1); Sodium 139 mmol/L (135-145); Total Protein 7.5 g/dL (6.5-8.0)
[2020-12-22 12:12] LABS: Calcium (PTHI) 9.2 mg/dL (8.6-10.4); PTHI 41 pg/mL (14-64)
== END 2020-12-19 12:45 | disposition home or self-care (01) ==
LOC: HO.LAB 12:44
PROVIDERS: PCP Internal Medicine; Visit Provider Internal Medicine Hypertension Specialist
DX: I12.9 Hypertensive chronic kidney disease with stage 1 through stage 4 chronic kidney disease, or unspecified chronic kidney disease (principal); N18.9 Chronic kidney disease, unspecified
CPT/HCPCS: 36415; 80053; 83970; 85025

== ENCOUNTER → 2021-02-08 07:55 | Outpatient (BNVA) | payer MEDICARE, SELFPAY | PROVIDERS: PCP Internal Medicine; Visit Provider Nurse Practitioner Family | DX: M06.00 Rheumatoid arthritis without rheumatoid factor, unspecified site (principal); M25.511 Pain in right shoulder | CPT/HCPCS: 99212 ==

== ENCOUNTER 2021-02-08 08:59 | Outpatient (REF) | payer MEDICARE, SELFPAY ==
--- NOTE | ~2021-02-08 | XR_ITS ---
EXAMINATION: XR SHOULDER, RIGHT CLINICAL INFORMATION: Rheumatoid arthritis COMPARISON: Previous x-ray April 2019 TECHNIQUE: AP external rotation, Grashey, scapular Y, and axillary views of the right shoulder. FINDINGS: Bone alignment is normal. No fracture or dislocation is seen. There is arthritis at the glenohumeral and acromioclavicular joints with osteophyte formation. There are degenerative changes of the greater tuberosity. No erosions or subchondral cyst formation is seen. The bones appear osteopenic. Soft tissues are unremarkable. XR/XR shoulder RT min 2V IMPRESSION: Degenerative changes at the glenohumeral and acromioclavicular joint and greater tuberosity. Osteopenia.
[2021-02-08 10:34] LABS: Alanine Aminotransferase 15 U/L (0-31); Albumin Level 4.3 g/dL (3.5-5.0); Alkaline Phosphatase 75 U/L (39-117); Anion Gap 13 (12-20); Aspartate Amino Transferase 14 U/L (5-31); Bilirubin Total 0.4 mg/dL (0.0-1.0); Blood Urea Nitrogen 23 mg/dL (9-16); Calcium 9.3 mg/dL (8.4-10.2); Carbon Dioxide 27 mmol/L (22-29); Chloride 105 mmol/L (96-108); Cholesterol 170 mg/dL; Estimated Glomerular Filt Rate 38; Glucose Random 100 mg/dL (60-115); HDL Cholesterol 38 mg/dL; LDL Cholesterol Calculated 73 mg/dl; Potassium 4.6 mmol/L (3.3-5.1); Sodium 140 mmol/L (135-145); Total Protein 7.7 g/dL (6.5-8.0); Triglycerides 297 mg/dL
[2021-02-08 10:47] LABS: Erythrocyte Sedimentation Rate 23 MM/HR (0-20)
[2021-02-08 10:59] LABS: Thyroid Stimulating Hormone 2.73 uIU/mL (0.32-4.0)
[2021-02-08 12:30] LABS: Creatinine Urine 109.57 mg/dL; Microalbum/Creatinine Ratio Ur 249.1 ug/mg cr
== END 2021-02-08 09:00 | disposition home or self-care (01) ==
LOC: HO.LAB 08:59
PROVIDERS: Nurse Practitioner Gerontology; PCP Internal Medicine; Visit Provider Nurse Practitioner Family
DX: E66.3 Overweight (principal); M06.00 Rheumatoid arthritis without rheumatoid factor, unspecified site; M19.90 Unspecified osteoarthritis, unspecified site; E11.42 Type 2 diabetes mellitus with diabetic polyneuropathy
CPT/HCPCS: 36415; 73030; 80053; 80061; 82043; 84443; 85652; 86140

== ENCOUNTER 2021-02-13 10:38 | Outpatient (REF) | payer MEDICARE, SELFPAY ==
[2021-02-13 10:51] LABS: MANUAL DIFF FLAG NO
[2021-02-13 11:04] LABS: Basophils Percent Auto 0.8 % (0-2); Eosinophils Absolute Auto 0.1 X10*3/uL (0.0-0.4); Eosinophils Percent Auto 1.5 % (0-4); Hematocrit 35.4 % (37.0-47.0); Hemoglobin 11.4 g/dl (12.0-16.0); Imm Gran Abs Auto 0.03 X10*3/uL (0.00-0.03); Imm Gran Pct Auto 0.6 % (0.0-0.4); Lymphocytes Percent Auto 38.2 % (20-40); Mean Corpuscular HGB Conc 32.2 g/dl (31.0-35.0); Mean Corpuscular Hemoglobin 29.8 pg (27.0-33.0); Mean Corpuscular Volume 92.4 fL (80.0-98.0); Mean Platelet Volume 10.1 fL (9.4-12.3); Monocytes Absolute Auto 0.6 X10*3/uL (0.1-1.2); Monocytes Percent Auto 11.7 % (2-11); Neutrophils Absolute Auto 2.5 x10*3/uL (2.0-8.3); Neutrophils Percent Auto 47.2 % (45-73); Platelet Count 194 X10*3/uL (160-400); Red Blood Count 3.83 X10*6/uL (4.20-5.50); Red Cell Distribution Width 13.2 % (11.0-16.0); White Blood Count 5.3 X10*3/uL (4.8-10.8)
[2021-02-13 11:30] LABS: Alanine Aminotransferase 16 U/L (0-31); Albumin Level 4.4 g/dL (3.5-5.0); Alkaline Phosphatase 75 U/L (39-117); Anion Gap 12 (12-20); Aspartate Amino Transferase 14 U/L (5-31); Bilirubin Total 0.5 mg/dL (0.0-1.0); Blood Urea Nitrogen 27 mg/dL (9-16); C Reactive Protein 0.15 mg/dL (< or = 0.50); Calcium 9.3 mg/dL (8.4-10.2); Carbon Dioxide 27 mmol/L (22-29); Chloride 106 mmol/L (96-108); Estimated Glomerular Filt Rate 38; Glucose Random 102 mg/dL (60-115); Potassium 4.7 mmol/L (3.3-5.1); Sodium 140 mmol/L (135-145); Total Protein 7.8 g/dL (6.5-8.0)
[2021-02-13 11:55] LABS: Erythrocyte Sedimentation Rate 25 MM/HR (0-20)
== END 2021-02-13 10:39 | disposition home or self-care (01) ==
LOC: HO.LAB 10:38
PROVIDERS: Nurse Practitioner Family; PCP Internal Medicine; Visit Provider Internal Medicine
DX: M06.00 Rheumatoid arthritis without rheumatoid factor, unspecified site (principal)
CPT/HCPCS: 36415; 80053; 85025; 85652; 86140

== ENCOUNTER → 2021-02-21 11:18 | Outpatient (BNVA) | payer MEDICARE, SELFPAY | PROVIDERS: PCP Internal Medicine; Visit Provider Nurse Practitioner Gerontology | DX: E11.42 Type 2 diabetes mellitus with diabetic polyneuropathy (principal); E78.5 Hyperlipidemia, unspecified; I10 Essential (primary) hypertension | CPT/HCPCS: 82947; 83036; 99212 ==

== ENCOUNTER → 2021-03-12 09:52 | Outpatient (BNVA) | payer MEDICARE, SELFPAY | PROVIDERS: PCP Internal Medicine; Visit Provider Orthopaedic Surgery | DX: M75.41 Impingement syndrome of right shoulder (principal); M06.00 Rheumatoid arthritis without rheumatoid factor, unspecified site; E11.42 Type 2 diabetes mellitus with diabetic polyneuropathy | CPT/HCPCS: 20610; 99202; J1100 ==

== ENCOUNTER 2021-04-03 12:02 | Outpatient (REF) | payer MEDICARE, SELFPAY ==
[2021-04-03 13:26] LABS: COVID-19 Test Negative (Negative)
== END 2021-04-03 12:03 | disposition home or self-care (01) ==
LOC: HO.LAB 12:02
PROVIDERS: Visit Provider Internal Medicine
DX: Z20.822 Contact with and (suspected) exposure to COVID-19 (principal)
CPT/HCPCS: 36415; 87635; C9803

== ENCOUNTER 2021-04-05 09:21 | Outpatient (REF) | payer MEDICARE, SELFPAY ==
--- NOTE | ~2021-04-05 | MM_ITS ---
EXAMINATION: MM SCREENING DIGITAL BREAST TOMOSYNTHESIS, BILATERAL CLINICAL INFORMATION: Screening. Asymptomatic. The lifetime risk of breast cancer based on the Tyrer-Cuzick Model is under 2%. COMPARISON: Mammography: 03/21/2020, 08/28/2018, 08/12/2017 TECHNIQUE: Digital breast tomosynthesis is performed in both the craniocaudal and mediolateral oblique views along with computer-aided detection (CAD). Synthesized 2D images are generated from the tomosynthesis. Additional left CC view is provided. FINDINGS: There are scattered areas of fibroglandular density (ACR BI-RADS breast composition Category b). There are no significant masses, abnormal calcifications, or other abnormalities. Bilateral vascular and punctate round calcifications are again seen. Grouped round calcifications right breast are similar to prior study. No significant changes. Skin contours are smooth. MM/MM tomosynthesis screening BI IMPRESSION: No mammographic evidence of malignancy. ASSESSMENT: BI-RADS 2: Benign RECOMMENDATION: Routine annual mammography screening. This patient's information was entered into a reminder system with a target due date for their next mammogram.
== END 2021-04-05 09:22 | disposition home or self-care (01) ==
LOC: HO.MAMMO 09:21
PROVIDERS: Visit Provider Internal Medicine
DX: Z12.31 Encounter for screening mammogram for malignant neoplasm of breast (principal)
CPT/HCPCS: 77063; 77067

== ENCOUNTER 2021-04-10 14:11 | Outpatient (REF) | payer MEDICARE, SELFPAY ==
--- NOTE | ~2021-04-10 | MM_ITS ---
EXAMINATION: BONE DENSITOMETRY CLINICAL INDICATION: Other specified disorders of bone density and structure. COMPARISON: Previous BD dated 12/20/2016 and baseline BD dated 02/23/2008. TECHNIQUE: Using a [employer] DXA System (software version: 13.1) manufactured by [employer], dual-energy x-ray absorptiometry was performed of the lumbar spine and left hip. The images are of good technical quality. Summary results are attached. FINDINGS: AP SPINE L1-L4: Current: BMD 1.005 g/cm2, Z-score 0.2, T-score -1.5, osteopenia, 0.3% increase from previous, 4.6% increase from baseline (<5% change is not significant). Prior: BMD 1.002 g/cm2. Baseline: BMD 0.961 g/cm2. LEFT FEMUR, NECK: Current: BMD 0.910 g/cm2, Z-score 1.2, T-score -0.9, normal. Prior: BMD 0.921 g/cm2. Baseline: BMD 0.963 g/cm2. LEFT FEMUR, TOTAL: Current: BMD 1.050 g/cm2, Z-score 2.3, T-score 0.3, normal, 3.7% increase from previous, 3.4% decrease from baseline (<5% change is not significant). Prior: BMD 1.013 g/cm2. Baseline: BMD 1.087 g/cm2. IDENTIFIED RISK FACTORS: Rheumatoid arthritis, osteoporosis, menopause, hysterectomy. HISTORY OF FRACTURE: None listed. MEDICATIONS: Calcium supplements or multivitamin, vitamin D. MM/XR DEXA axial skeleton IMPRESSION: 1. DIAGNOSIS: Osteopenia based on the lowest T-score value of -1.5 in the lumbar spine applying World Health Organization criteria. 2. 10-YEAR FRACTURE RISK PREDICTION, FRAX: Major osteoporotic fracture (clinical spine, forearm, hip or shoulder) 8.4%. Hip fracture 1.8%. 3. Treatment Recommendations: NOF guidelines recommend consideration for treatment in postmenopausal women and men age 50 and older presenting with the following: -A hip or vertebral (clinical or morphometric) fracture. -T-score less than or equal to -2.5 at the femoral neck or spine after appropriate evaluation to exclude secondary causes. -Low bone mass at the hip or spine and a 10-year fracture probability by FRAX of greater than or equal to 3% for hip fracture or greater than or equal to 20% for major osteoporotic fracture based on the [place] adapted WHO algorithm. 4. Other Recommendations: All treatment decisions require clinical judgment and consideration of individual patient factors, including patient preferences, comorbidities, previous drug use, risk factors not captured in the FRAX model (e.g. frailty, falls, vitamin D deficiency, increased bone turnover, interval significant decline in bone density) and possible under or overestimation of fracture risk by FRAX. Additional medical evaluation for secondary cause of low bone mineral density may be appropriate. FUTURE SCAN RECOMMENDATION: People with diagnosed cases of osteoporosis or at high risk for fracture should have regular bone mineral density tests. For patients eligible for Medicare, routine testing is allowed once every 2 years. The testing frequency can be increased to one year for patients who have rapidly progressing disease, those who are receiving or discontinuing medical therapy to restore bone mass, or have additional risk factors.
== END 2021-04-10 14:12 | disposition home or self-care (01) ==
LOC: HO.MAMMO 14:11
PROVIDERS: Visit Provider Internal Medicine
DX: Z13.820 Encounter for screening for osteoporosis (principal); M85.80 Other specified disorders of bone density and structure, unspecified site; M06.9 Rheumatoid arthritis, unspecified; Z78.0 Asymptomatic menopausal state; Z90.710 Acquired absence of both cervix and uterus
CPT/HCPCS: 77080

== ENCOUNTER 2021-05-11 10:42 | Outpatient (REF) | payer MEDICARE, SELFPAY ==
--- NOTE | ~2021-05-11 | XR_ITS ---
EXAMINATION: XR KNEE, BILATERAL CLINICAL INFORMATION: Bilateral knee pain COMPARISON: 01/14/2019 TECHNIQUE: 4 views of each knee FINDINGS: Right knee: Medial compartment narrowing with sclerosis and large marginal osteophytes. Small marginal osteophytes in the patellofemoral and lateral compartments. No fracture. No joint effusion. Left knee: Medial compartment narrowing with sclerosis and large marginal osteophytes. Small marginal osteophytes in the patellofemoral and lateral compartments. No fracture. No joint effusion. XR/XR knee RT 4V IMPRESSION: Severe medial compartment osteoarthritis of both knees. No acute osseous abnormality. Slightly progressed since 01/14/2019.
--- NOTE | ~2021-05-11 | XR_ITS ---
EXAMINATION: XR KNEE, BILATERAL CLINICAL INFORMATION: Bilateral knee pain COMPARISON: 01/14/2019 TECHNIQUE: 4 views of each knee FINDINGS: Right knee: Medial compartment narrowing with sclerosis and large marginal osteophytes. Small marginal osteophytes in the patellofemoral and lateral compartments. No fracture. No joint effusion. Left knee: Medial compartment narrowing with sclerosis and large marginal osteophytes. Small marginal osteophytes in the patellofemoral and lateral compartments. No fracture. No joint effusion. XR/XR knee LT 4V IMPRESSION: Severe medial compartment osteoarthritis of both knees. No acute osseous abnormality. Slightly progressed since 01/14/2019.
[2021-05-11 11:50] LABS: MANUAL DIFF FLAG NO
[2021-05-11 12:31] LABS: Basophils Absolute Auto 0.1 X10*3/uL (0.0-0.2); Basophils Percent Auto 0.8 % (0-2); Eosinophils Absolute Auto 0.1 X10*3/uL (0.0-0.4); Eosinophils Percent Auto 1.8 % (0-4); Hematocrit 37.1 % (37.0-47.0); Hemoglobin 11.7 g/dl (12.0-16.0); Imm Gran Abs Auto 0.03 X10*3/uL (0.00-0.03); Imm Gran Pct Auto 0.5 % (0.0-0.4); Lymphocytes Absolute Auto 2.1 X10*3/uL (1.2-4.9); Lymphocytes Percent Auto 33.4 % (20-40); Mean Corpuscular HGB Conc 31.5 g/dl (31.0-35.0); Mean Corpuscular Hemoglobin 28.5 pg (27.0-33.0); Mean Corpuscular Volume 90.5 fL (80.0-98.0); Mean Platelet Volume 10.5 fL (9.4-12.3); Monocytes Absolute Auto 0.7 X10*3/uL (0.1-1.2); Monocytes Percent Auto 11.1 % (2-11); Neutrophils Absolute Auto 3.2 x10*3/uL (2.0-8.3); Neutrophils Percent Auto 52.4 % (45-73); Platelet Count 228 X10*3/uL (160-400); White Blood Count 6.2 X10*3/uL (4.8-10.8)
[2021-05-11 13:00] LABS: Alanine Aminotransferase 14 U/L (0-31); Albumin Level 4.3 g/dL (3.5-5.0); Alkaline Phosphatase 66 U/L (39-117); Anion Gap 13 (12-20); Aspartate Amino Transferase 14 U/L (5-31); Bilirubin Total 0.5 mg/dL (0.0-1.0); Blood Urea Nitrogen 26 mg/dL (9-16); C Reactive Protein 0.23 mg/dL (< or = 0.50); Carbon Dioxide 26 mmol/L (22-29); Chloride 106 mmol/L (96-108); Estimated Glomerular Filt Rate 35; Glucose Random 85 mg/dL (60-115); Potassium 5.2 mmol/L (3.3-5.1); Sodium 140 mmol/L (135-145); Total Protein 7.8 g/dL (6.5-8.0)
[2021-05-11 13:14] LABS: Erythrocyte Sedimentation Rate 27 MM/HR (0-20)
== END 2021-05-11 10:43 | disposition home or self-care (01) ==
LOC: HO.LAB 10:42
PROVIDERS: PCP Internal Medicine; Visit Provider Nurse Practitioner Family
DX: M06.00 Rheumatoid arthritis without rheumatoid factor, unspecified site (principal); M75.41 Impingement syndrome of right shoulder; M25.561 Pain in right knee; M25.562 Pain in left knee
CPT/HCPCS: 36415; 73564; 80053; 85025; 85652; 86140; 99212

== ENCOUNTER → 2021-05-15 13:41 | Outpatient (BNVA) | payer MEDICARE, SELFPAY | PROVIDERS: PCP Internal Medicine; Referring Provider Internal Medicine; Visit Provider Nurse Practitioner Family | DX: R00.2 Palpitations (principal); I10 Essential (primary) hypertension | CPT/HCPCS: 93005; 99212 ==

== ENCOUNTER → 2021-05-21 10:35 | Outpatient (BNVA) | payer MEDICARE, SELFPAY | PROVIDERS: PCP Internal Medicine; Visit Provider Orthopaedic Surgery | DX: M75.41 Impingement syndrome of right shoulder (principal); M17.11 Unilateral primary osteoarthritis, right knee; E11.42 Type 2 diabetes mellitus with diabetic polyneuropathy | CPT/HCPCS: 20610; 99212; J1100 ==

== ENCOUNTER 2021-06-18 09:29 | Outpatient (REF) | payer MEDICARE, SELFPAY ==
[2021-06-18 11:02] LABS: Alanine Aminotransferase 12 U/L (0-31); Albumin Level 4.3 g/dL (3.5-5.0); Alkaline Phosphatase 65 U/L (39-117); Anion Gap 13 (12-20); Aspartate Amino Transferase 12 U/L (5-31); Bilirubin Total 0.4 mg/dL (0.0-1.0); Blood Urea Nitrogen 22 mg/dL (9-16); Calcium 9.6 mg/dL (8.4-10.2); Carbon Dioxide 26 mmol/L (22-29); Chloride 106 mmol/L (96-108); Cholesterol 182 mg/dL; Estimated Glomerular Filt Rate 38; Glucose Random 97 mg/dL (60-115); HDL Cholesterol 40 mg/dL; LDL Cholesterol Calculated 78 mg/dl; Potassium 4.9 mmol/L (3.3-5.1); Sodium 140 mmol/L (135-145); Total Protein 7.9 g/dL (6.5-8.0); Triglycerides 321 mg/dL
[2021-06-18 11:22] LABS: Creatinine Urine 67.28 mg/dL; Microalbum/Creatinine Ratio Ur 117.4 ug/mg cr
[2021-06-22 13:41] LABS: Vitamin D 25-OH, D2 <4 ng/mL; Vitamin D 25-OH, D3 33 ng/mL; Vitamin D 25-OH, Total 33 ng/mL (30-100)
== END 2021-06-18 09:30 | disposition home or self-care (01) ==
LOC: HO.LAB 09:29
PROVIDERS: PCP Internal Medicine; Visit Provider Internal Medicine
DX: E55.9 Vitamin D deficiency, unspecified (principal); E78.5 Hyperlipidemia, unspecified; E11.9 Type 2 diabetes mellitus without complications
CPT/HCPCS: 36415; 80053; 80061; 82043; 82306

== ENCOUNTER 2021-06-19 12:45 | Emergency (ER) | payer MEDICARE, SELFPAY ==
--- NOTE | ~2021-06-19 | XR_ITS ---
EXAMINATION: XR CHEST CLINICAL INFORMATION: Chest pain COMPARISON: Previous chest x-ray December 2017 TECHNIQUE: 2 views of the chest were obtained. FINDINGS: The cardiac and mediastinal contours are stable. The lungs are clear. There is no pleural effusion or pneumothorax. There are degenerative changes of the spine and curvature to the left. XR/XR chest 2V IMPRESSION: No evidence for acute disease in the chest.
--- NOTE | 2021-06-19 12:51 | ECG_ITS ---
Test Reason : CP Blood Pressure : / mmHG Vent. Rate : 081 BPM Atrial Rate : 081 BPM P-R Int : 162 ms QRS Dur : 096 ms QT Int : 364 ms P-R-T Axes : 059 008 046 degrees QTc Int : 422 ms Normal sinus rhythm Minimal voltage criteria for LVH, may be normal variant ( [place] product ) Borderline ECG When compared with ECG of 02-JUN-2020 21:16, No significant change was found Referred By: Generic ED Physician Electronically Signed By:AL JACINTO
[2021-06-19 13:02] VITALS: BP 161/80; PULSE 82; RESP 18; TEMP 37; O2SAT 98; BMI 28.3
[2021-06-19 14:12] LABS: MANUAL DIFF FLAG NO
[2021-06-19 14:14] LABS: Basophils Percent Auto 0.5 % (0-2); Eosinophils Absolute Auto 0.1 X10*3/uL (0.0-0.4); Eosinophils Percent Auto 1.4 % (0-4); Hematocrit 36.4 % (37.0-47.0); Hemoglobin 11.6 g/dl (12.0-16.0); Imm Gran Abs Auto 0.05 X10*3/uL (0.00-0.03); Imm Gran Pct Auto 0.8 % (0.0-0.4); Lymphocytes Absolute Auto 2.2 X10*3/uL (1.2-4.9); Lymphocytes Percent Auto 32.9 % (20-40); Mean Corpuscular HGB Conc 31.9 g/dl (31.0-35.0); Mean Platelet Volume 10.2 fL (9.4-12.3); Monocytes Absolute Auto 0.6 X10*3/uL (0.1-1.2); Monocytes Percent Auto 9.8 % (2-11); Neutrophils Absolute Auto 3.6 x10*3/uL (2.0-8.3); Neutrophils Percent Auto 54.6 % (45-73); Platelet Count 210 X10*3/uL (160-400); Red Cell Distribution Width 13.8 % (11.0-16.0); White Blood Count 6.5 X10*3/uL (4.8-10.8)
[2021-06-19 14:33] LABS: Alanine Aminotransferase 13 U/L (0-31); Albumin Level 4.3 g/dL (3.5-5.0); Alkaline Phosphatase 65 U/L (39-117); Anion Gap 14 (12-20); Aspartate Amino Transferase 13 U/L (5-31); Bilirubin Total 0.4 mg/dL (0.0-1.0); Blood Urea Nitrogen 24 mg/dL (9-16); Calcium 9.7 mg/dL (8.4-10.2); Carbon Dioxide 25 mmol/L (22-29); Chloride 105 mmol/L (96-108); Creatinine Clr Calc Pharmacy 28.4; Estimated Glomerular Filt Rate 36; Glucose Random 97 mg/dL (60-115); Potassium 4.9 mmol/L (3.3-5.1); Sodium 139 mmol/L (135-145); Total Protein 7.8 g/dL (6.5-8.0)
[2021-06-19 14:35] LABS: Troponin-I High Sensitivity < 3.5 ng/L (<3.5-17.0)
[2021-06-19 16:49] VITALS: BP 162/74; PULSE 72; RESP 18; O2SAT 100
--- NOTE | 2021-06-19 17:04 | ED_ITS ---
HPI - Chest Pain General Chief Complaint: Chest Pain Stated Complaint: chest pain/nausea Time Seen by Provider: 06/19/21 16:52 Source: patient Mode of arrival: ambulatory Limitations: no limitations History of Present Illness HPI narrative: intermittent sharp pain in the left chest lasting 1-3 minutes at a time. Pain started yesterday and she had it this morning. She does not have the pain right now. Patient states she has had this pain in the past. MD complaint: chest pain Onset (ago): minute(s) Timing of current episode: episodic Prior episodes: Yes Onset: during rest Pain location: left chest Pain radiation: none Severity: mild Quality: sharp Risk Factors Coronary artery disease risk factors: diabetes and hypertension Related Data Home Medications Medication Instructions Recorded Confirmed aspirin 81 mg tablet,delayed 81 mg PO DAILY 02/07/20 05/15/21 release (Adult Low Dose Aspirin) calcium carbonate 500 mg calcium 500 mg PO DAILY tab 05/11/21 05/15/21 (1,250 mg) tablet (Oyster Shell Calcium 500) Previous Rx's Medication Instructions Recorded acetaminophen 325 mg tablet 325 mg PO Q6H PRN #120 tab 02/24/20 ferrous sulfate 325 mg (65 mg 325 mg PO DAILY 90 Days #90 tab 04/26/20 iron) tablet,delayed release metformin 500 mg tablet 500 mg PO QPM #90 tab 11/09/20 compression stockings #1 ea 12/13/20 atorvastatin 10 mg tablet 10 mg PO QPM 90 Days #90 tab 02/07/21 lisinopril 40 mg tablet 40 mg PO DAILY #90 tab 02/07/21 omeprazole 20 mg capsule,delayed 20 mg PO DAILY #90 cap 04/08/21 release etanercept 50 mg/mL (1 mL) 50 mg SUBCUT QWEEK #4 ml 06/07/21 subcutaneous pen injector (Enbrel SureClick) metoprolol succinate 25 mg 25 mg PO DAILY 90 Days #90 tab 06/13/21 tablet,extended release 24 hr Allergies Allergy/AdvReac Type Severity Reaction Status Date / Time ibuprofen Allergy Intermediate mouth Verified 06/19/21 13:02 swelling PMFSH Past Medical History Medical History Anemia of chronic disease Arthritis Atypical chest pain Diabetes Diabetes mellitus Essential hypertension GERD (gastroesophageal reflux disease) HTN (hypertension) Hypercholesteremia Hyperlipidemia LDL goal <100 Hypothyroid Leg edema Microalbuminuria Osteopenia Osteoporosis Overweight Primary tongue squamous cell carcinoma Rheumatoid arthritis 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 Tubular adenoma Type 2 diabetes mellitus with diabetic polyneuropathy Surgical History History of colonoscopy History of tubal ligation Hx of blepharoplasty Hx of cataract extraction Hx of hysterectomy Hx of squamous cell carcinoma excision Family History Family History Father Hx of colon cancer, stage IV Stomach cancer Mother Hypertension Maternal Aunt Vaginal cancer Social History Social History (Updated 05/21/21 @ 10:42 by Abelino Cote) 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 Household Members Other:: Lives with family near by Housing: Apartment Alcohol intake: never Patient Tobacco Use Status: Never used Tobacco e-Cigarette/Vaping Use: Never Used Second Hand Smoke Exposure: No Advance Directives: No Advance Directives Information Provided: No service: No Current occupational status: 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 Chest pain was short and momentary Time: 18:00 MDM - Chest Pain Lab Data Result diagrams: 06/19/21 14:07 06/19/21 14:07 Labs: Lab Results 06/19/21 06/19/21 06/19/21 Range/Units 14:07 14:07 14:07 WBC 6.5 (4.8-10.8) X10*3/uL RBC 4.00 L (4.20-5.50) X10*6/uL Hgb 11.6 L (12.0-16.0) g/dl Hct 36.4 L (37.0-47.0) % MCV 91.0 (80.0-98.0) fL MCH 29.0 (27.0-33.0) pg MCHC 31.9 (31.0-35.0) g/dl RDW 13.8 (11.0-16.0) % Plt Count 210 (160-400) X10*3/uL MPV 10.2 (9.4-12.3) fL Immature Gran % (Auto) 0.8 H (0.0-0.4) % Neut % (Auto) 54.6 (45-73) % Lymph % (Auto) 32.9 (20-40) % Coleman % (Auto) 9.8 (2-11) % Eos % (Auto) 1.4 (0-4) % Baso % (Auto) 0.5 (0-2) % Lymph # (Auto) 2.2 (1.2-4.9) X10*3/uL Coleman # (Auto) 0.6 (0.1-1.2) X10*3/uL Eos # (Auto) 0.1 (0.0-0.4) X10*3/uL Baso # (Auto) 0.0 (0.0-0.2) X10*3/uL Abs Immat Gran (auto) 0.05 H (0.00-0.03) X10*3/uL Absolute Neuts (auto) 3.6 (2.0-8.3) x10*3/uL Absolute Nucleated RBC 0.000 (0.0-0.012) X10*3/uL Nucleated RBC % (auto) 0.0 (0.0-0.2) /100WBC Sodium 139 (135-145) mmol/L Potassium 4.9 (3.3-5.1) mmol/L Chloride 105 (96-108) mmol/L Carbon Dioxide 25 (22-29) mmol/L Anion Gap 14 (12-20) BUN 24 H (9-16) mg/dL Creatinine 1.40 (0.5-1.4) mg/dL Estim Creat Clear Calc 28.4 Estimated GFR 36 Random Glucose 97 (60-115) mg/dL Calcium 9.7 (8.4-10.2) mg/dL Total Bilirubin 0.4 (0.0-1.0) mg/dL AST 13 (5-31) U/L ALT 13 (0-31) U/L Alkaline Phosphatase 65 (39-117) U/L Troponin I High Sens < 3.5 (<3.5-17.0) ng/L Total Protein 7.8 (6.5-8.0) g/dL Albumin 4.3 (3.5-5.0) g/dL // Range/Units 17:02 WBC (4.8-10.8) X10*3/uL RBC (4.20-5.50) X10*6/uL Hgb (12.0-16.0) g/dl Hct (37.0-47.0) % MCV (80.0-98.0) fL MCH (27.0-33.0) pg MCHC (31.0-35.0) g/dl RDW (11.0-16.0) % Plt Count (160-400) X10*3/uL MPV (9.4-12.3) fL Immature Gran % (Auto) (0.0-0.4) % Neut % (Auto) (45-73) % Lymph % (Auto) (20-40) % Coleman % (Auto) (2-11) % Eos % (Auto) (0-4) % Baso % (Auto) (0-2) % Lymph # (Auto) (1.2-4.9) X10*3/uL Coleman # (Auto) (0.1-1.2) X10*3/uL Eos # (Auto) (0.0-0.4) X10*3/uL Baso # (Auto) (0.0-0.2) X10*3/uL Abs Immat Gran (auto) (0.00-0.03) X10*3/uL Absolute Neuts (auto) (2.0-8.3) x10*3/uL Absolute Nucleated RBC (0.0-0.012) X10*3/uL Nucleated RBC % (auto) (0.0-0.2) /100WBC Sodium (135-145) mmol/L Potassium (3.3-5.1) mmol/L Chloride (96-108) mmol/L Carbon Dioxide (22-29) mmol/L Anion Gap (12-20) BUN (9-16) mg/dL Creatinine (0.5-1.4) mg/dL Estim Creat Clear Calc Estimated GFR Random Glucose (60-115) mg/dL Calcium (8.4-10.2) mg/dL Total Bilirubin (0.0-1.0) mg/dL AST (5-31) U/L ALT (0-31) U/L Alkaline Phosphatase (39-117) U/L Troponin I High Sens 4.3 (<3.5-17.0) ng/L Total Protein (6.5-8.0) g/dL Albumin (3.5-5.0) g/dL Imaging Data Chest x-ray: Radiologist's impression: FINDINGS: The cardiac and mediastinal contours are stable. The lungs are clear. There is no pleural effusion or pneumothorax. There are degenerative changes of the spine and curvature to the left. XR/XR chest 2V IMPRESSION: No evidence for acute disease in the chest. ECG Data ECG #1: Attestation: I personally reviewed and interpreted this ECG as follows: Interpretation: sinus 80, no st or twave changes Discharge Plan Discharge Clinical Impression: Chest pain Patient Disposition: Home, Self-Care Instructions: Noncardiac Chest Pain (ED) Prescriptions: No Action acetaminophen 325 mg tablet 325 mg PO Q6H PRN (Reason: pain) Qty: 120 2RF metformin 500 mg tablet 500 mg PO QPM Qty: 90 1RF (DME) compression stockings 20 mmHg See Rx Instructions .Route .MEDSUPPLY Qty: 1 0RF Rx Instructions: As directed atorvastatin 10 mg tablet 10 mg PO QPM 90 Days Qty: 90 3RF lisinopril 40 mg tablet 40 mg PO DAILY Qty: 90 3RF omeprazole 20 mg capsule,delayed release(DR/EC) 20 mg PO DAILY Qty: 90 1RF Enbrel SureClick 50 mg/mL (1 mL) pen injector 50 mg subcut QWEEK Qty: 4 4RF metoprolol succinate 25 mg tablet extended release 24 hr 25 mg PO DAILY 90 Days Qty: 90 3RF ferrous sulfate 325 mg (65 mg iron) tablet,delayed release (DR/EC) 325 mg PO DAILY 90 Days Qty: 90 3RF aspirin [Adult Low Dose Aspirin] 81 mg tablet,delayed release (DR/EC) 81 mg PO DAILY 0RF calcium carbonate [Oyster Shell Calcium 500] 500 mg calcium (1,250 mg) tablet 500 mg PO DAILY 0RF Referrals: Ana Paula Klein MD [Primary Care Provider] - 5 days
[2021-06-19 17:31] LABS: Troponin-I High Sensitivity 4.3 ng/L (<3.5-17.0)
[2021-06-19 18:11] VITALS: BP 155/65; PULSE 65; RESP 18; O2SAT 99
== END 2021-06-19 18:12 | disposition home or self-care (01) ==
PROVIDERS: Emergency Provider Emergency Medicine; PCP Internal Medicine
DX: R07.9 Chest pain, unspecified (principal); E11.9 Type 2 diabetes mellitus without complications; I10 Essential (primary) hypertension; E78.5 Hyperlipidemia, unspecified; Z79.82 Long term (current) use of aspirin; Z79.02 Long term (current) use of antithrombotics/antiplatelets; Z79.899 Other long term (current) drug therapy
CPT/HCPCS: 36415; 71046; 80053; 84484; 85025; 93005; 99283; 99284

== ENCOUNTER → 2021-08-20 10:16 | Outpatient (BNVA) | payer MEDICARE, SELFPAY | PROVIDERS: PCP Internal Medicine; Visit Provider Orthopaedic Surgery | DX: M75.41 Impingement syndrome of right shoulder (principal); M17.11 Unilateral primary osteoarthritis, right knee; E11.9 Type 2 diabetes mellitus without complications | CPT/HCPCS: 20610; 99212; J1100 ==

== ENCOUNTER 2021-09-07 11:12 | Outpatient (REF) | payer OTHER, SELFPAY ==
[2021-09-07 12:16] LABS: MANUAL DIFF FLAG NO
[2021-09-07 13:09] LABS: Basophils Absolute Auto 0.1 X10*3/uL (0.0-0.2); Basophils Percent Auto 0.7 % (0-2); Eosinophils Absolute Auto 0.1 X10*3/uL (0.0-0.4); Eosinophils Percent Auto 1.8 % (0-4); Hematocrit 36.3 % (37.0-47.0); Hemoglobin 11.3 g/dl (12.0-16.0); Imm Gran Abs Auto 0.05 X10*3/uL (0.00-0.03); Imm Gran Pct Auto 0.7 % (0.0-0.4); Lymphocytes Absolute Auto 2.4 X10*3/uL (1.2-4.9); Lymphocytes Percent Auto 32.2 % (20-40); Mean Corpuscular HGB Conc 31.1 g/dl (31.0-35.0); Mean Corpuscular Hemoglobin 28.1 pg (27.0-33.0); Mean Corpuscular Volume 90.3 fL (80.0-98.0); Mean Platelet Volume 10.4 fL (9.4-12.3); Monocytes Percent Auto 14.1 % (2-11); Neutrophils Absolute Auto 3.7 x10*3/uL (2.0-8.3); Neutrophils Percent Auto 50.5 % (45-73); Platelet Count 244 X10*3/uL (160-400); Red Blood Count 4.02 X10*6/uL (4.20-5.50); Red Cell Distribution Width 13.8 % (11.0-16.0); White Blood Count 7.3 X10*3/uL (4.8-10.8)
[2021-09-07 13:41] LABS: Alanine Aminotransferase 13 U/L (0-31); Albumin Level 4.3 g/dL (3.5-5.0); Alkaline Phosphatase 66 U/L (39-117); Anion Gap 15 (12-20); Aspartate Amino Transferase 13 U/L (5-31); Bilirubin Total 0.6 mg/dL (0.0-1.0); Blood Urea Nitrogen 26 mg/dL (9-16); C Reactive Protein 1.39 mg/dL (< or = 0.50); Calcium 10.8 mg/dL (8.4-10.2); Carbon Dioxide 26 mmol/L (22-29); Chloride 104 mmol/L (96-108); Estimated Glomerular Filt Rate 32; Glucose Random 84 mg/dL (60-115); Sodium 140 mmol/L (135-145); Total Protein 7.9 g/dL (6.5-8.0)
[2021-09-07 13:51] LABS: Erythrocyte Sedimentation Rate 51 MM/HR (0-20)
[2021-09-10 15:53] LABS: Calcium (PTHI) 10.6 mg/dL (8.6-10.4); PTHI 25 pg/mL (16-77)
== END 2021-09-07 11:13 | disposition home or self-care (01) ==
LOC: HO.LAB 11:12
PROVIDERS: PCP Internal Medicine; Visit Provider Nurse Practitioner Family
DX: M06.00 Rheumatoid arthritis without rheumatoid factor, unspecified site (principal); M75.41 Impingement syndrome of right shoulder; M25.561 Pain in right knee; M25.562 Pain in left knee; Z79.899 Other long term (current) drug therapy
CPT/HCPCS: 36415; 80053; 83970; 85025; 85652; 86140; 99212

== ENCOUNTER 2021-09-25 10:52 | Outpatient (REF) | payer OTHER, SELFPAY ==
[2021-09-25 12:32] LABS: Alanine Aminotransferase 11 U/L (0-31); Albumin Level 4.3 g/dL (3.5-5.0); Alkaline Phosphatase 68 U/L (39-117); Anion Gap 14 (12-20); Aspartate Amino Transferase 11 U/L (5-31); Bilirubin Total 0.5 mg/dL (0.0-1.0); Blood Urea Nitrogen 28 mg/dL (9-16); C Reactive Protein 0.85 mg/dL (< or = 0.50); Calcium 9.9 mg/dL (8.4-10.2); Carbon Dioxide 25 mmol/L (22-29); Chloride 104 mmol/L (96-108); Estimated Glomerular Filt Rate 34; Glucose Random 98 mg/dL (60-115); Potassium 4.9 mmol/L (3.3-5.1); Sodium 138 mmol/L (135-145)
[2021-09-26 13:46] LABS: Calcium (PTHI) 9.9 mg/dL (8.6-10.4); PTHI 33 pg/mL (16-77)
== END 2021-09-25 10:53 | disposition home or self-care (01) ==
LOC: HO.LAB 10:52
PROVIDERS: PCP Internal Medicine; Visit Provider Nurse Practitioner Family
DX: M06.00 Rheumatoid arthritis without rheumatoid factor, unspecified site (principal); E83.52 Hypercalcemia
CPT/HCPCS: 36415; 80053; 83970; 86140

== ENCOUNTER 2021-11-07 10:11 | Outpatient (REF) | payer OTHER, SELFPAY ==
[2021-11-07 10:33] LABS: MANUAL DIFF FLAG NO
[2021-11-07 10:52] LABS: Basophils Absolute Auto 0.1 X10*3/uL (0.0-0.2); Basophils Percent Auto 0.7 % (0-2); Eosinophils Absolute Auto 0.1 X10*3/uL (0.0-0.4); Eosinophils Percent Auto 1.9 % (0-4); Hematocrit 34.8 % (37.0-47.0); Hemoglobin 11.2 g/dl (12.0-16.0); Imm Gran Abs Auto 0.04 X10*3/uL (0.00-0.03); Imm Gran Pct Auto 0.5 % (0.0-0.4); Lymphocytes Absolute Auto 2.3 X10*3/uL (1.2-4.9); Lymphocytes Percent Auto 30.6 % (20-40); Mean Corpuscular HGB Conc 32.2 g/dl (31.0-35.0); Mean Corpuscular Hemoglobin 28.6 pg (27.0-33.0); Mean Platelet Volume 10.1 fL (9.4-12.3); Monocytes Absolute Auto 0.6 X10*3/uL (0.1-1.2); Monocytes Percent Auto 8.5 % (2-11); Neutrophils Absolute Auto 4.3 x10*3/uL (2.0-8.3); Neutrophils Percent Auto 57.8 % (45-73); Platelet Count 240 X10*3/uL (160-400); Red Blood Count 3.91 X10*6/uL (4.20-5.50); White Blood Count 7.4 X10*3/uL (4.8-10.8)
[2021-11-07 14:28] LABS: Alanine Aminotransferase 8 U/L (0-31); Albumin Level 4.3 g/dL (3.5-5.0); Alkaline Phosphatase 61 U/L (39-117); Anion Gap 17 (12-20); Aspartate Amino Transferase 10 U/L (5-31); Bilirubin Total 0.5 mg/dL (0.0-1.0); Blood Urea Nitrogen 33 mg/dL (9-16); Calcium 9.4 mg/dL (8.4-10.2); Carbon Dioxide 22 mmol/L (22-29); Chloride 107 mmol/L (96-108); Cholesterol 145 mg/dL; Estimated Glomerular Filt Rate 31; Glucose Fasting 101 mg/dL (60-99); HDL Cholesterol 42 mg/dL; Iron 61 mcg/dL (30-160); LDL Cholesterol Calculated 62 mg/dl; Percent Iron Saturation 17 % (15-50); Potassium 5.1 mmol/L (3.3-5.1); Sodium 141 mmol/L (135-145); Total Iron Binding Capacity 357 mcg/dL (228-428); Triglycerides 208 mg/dL; Unsaturated Iron Binding 296 ug/dL
[2021-11-07 16:00] LABS: Creatinine Urine 100.16 mg/dL; Microalbum/Creatinine Ratio Ur 111.8 ug/mg cr
== END 2021-11-07 10:12 | disposition home or self-care (01) ==
LOC: HO.LAB 10:11
PROVIDERS: PCP Internal Medicine; Visit Provider Internal Medicine
DX: D64.9 Anemia, unspecified (principal); E11.9 Type 2 diabetes mellitus without complications; E78.5 Hyperlipidemia, unspecified
CPT/HCPCS: 36415; 80053; 80061; 82043; 83540; 85025

== ENCOUNTER 2021-12-17 12:32 | Outpatient (REF) | payer OTHER, SELFPAY ==
[2021-12-17 14:13] LABS: Anion Gap 14 (12-20); Blood Urea Nitrogen 23 mg/dL (9-16); Calcium 9.5 mg/dL (8.4-10.2); Carbon Dioxide 27 mmol/L (22-29); Chloride 105 mmol/L (96-108); Estimated Glomerular Filt Rate 41; Phosphorus 3.7 mg/dL (2.7-4.5); Potassium 5.1 mmol/L (3.3-5.1); Sodium 141 mmol/L (135-145)
[2021-12-17 14:14] LABS: C Reactive Protein 0.65 mg/dL (< or = 0.50)
[2021-12-17 14:43] LABS: Erythrocyte Sedimentation Rate 45 MM/HR (0-20)
== END 2021-12-17 12:33 | disposition home or self-care (01) ==
LOC: HO.10HDL 12:32
PROVIDERS: Absent Provider Internal Medicine Hypertension Specialist; Visit Provider Nurse Practitioner Family
DX: M06.00 Rheumatoid arthritis without rheumatoid factor, unspecified site (principal); M75.41 Impingement syndrome of right shoulder; M25.561 Pain in right knee; M25.562 Pain in left knee; M25.512 Pain in left shoulder
CPT/HCPCS: 36415; 80051; 82310; 82565; 84100; 84520; 85652; 86140; 99212

== ENCOUNTER 2021-12-19 10:46 | Outpatient (REF) | payer OTHER, SELFPAY ==
--- NOTE | ~2021-12-19 | XR_ITS ---
EXAMINATION: XR SHOULDER, LEFT CLINICAL INFORMATION: Pain in left shoulder COMPARISON: None TECHNIQUE: AP external rotation, Grashey, scapular Y, and axillary views of the left shoulder. FINDINGS: Suspect prior surgical resection of distal clavicle. Glenohumeral joint normal triangular soft tissues unremarkable. XR/XR shoulder LT min 2V IMPRESSION: Probable postsurgical change. No acute abnormality
== END 2021-12-19 10:47 | disposition home or self-care (01) ==
LOC: HO.XRAY 10:46
PROVIDERS: PCP Internal Medicine; Visit Provider Nurse Practitioner Family
DX: M25.512 Pain in left shoulder (principal)
CPT/HCPCS: 73030

== ENCOUNTER → 2022-02-01 09:51 | Outpatient (BNVA) | payer OTHER, SELFPAY | PROVIDERS: PCP Internal Medicine; Visit Provider Orthopaedic Surgery | DX: M19.011 Primary osteoarthritis, right shoulder (principal); M25.512 Pain in left shoulder | CPT/HCPCS: 99212 ==

== ENCOUNTER 2022-02-26 08:27 | Outpatient (REF) | payer OTHER, SELFPAY ==
[2022-02-26 09:45] LABS: Creatinine Urine 101.65 mg/dL; Microalbum/Creatinine Ratio Ur 63.9 ug/mg cr
[2022-02-26 10:06] LABS: Alanine Aminotransferase 13 U/L (0-31); Alkaline Phosphatase 59 U/L (39-117); Anion Gap 13 (12-20); Aspartate Amino Transferase 11 U/L (5-31); Bilirubin Total 0.5 mg/dL (0.0-1.0); Blood Urea Nitrogen 25 mg/dL (9-16); Calcium 9.4 mg/dL (8.4-10.2); Carbon Dioxide 25 mmol/L (22-29); Chloride 107 mmol/L (96-108); Cholesterol 149 mg/dL; Estimated Glomerular Filt Rate 39; Glucose Fasting 92 mg/dL (60-99); HDL Cholesterol 39 mg/dL; LDL Cholesterol Calculated 65 mg/dl; Magnesium 1.9 mg/dL (1.6-2.6); Sodium 140 mmol/L (135-145); Thyroid Stimulating Hormone 2.57 uIU/mL (0.32-4.0); Total Protein 7.2 g/dL (6.5-8.0); Triglycerides 227 mg/dL; Vitamin D 25-OH Total 36.3 ng/mL (>30)
== END 2022-02-26 08:28 | disposition home or self-care (01) ==
LOC: HO.LAB 08:27
PROVIDERS: PCP Internal Medicine; Visit Provider Internal Medicine
DX: E11.9 Type 2 diabetes mellitus without complications (principal); N18.30 Chronic kidney disease, stage 3 unspecified; E78.5 Hyperlipidemia, unspecified; R00.2 Palpitations; E55.9 Vitamin D deficiency, unspecified; R25.2 Cramp and spasm
CPT/HCPCS: 36415; 80053; 80061; 82043; 82306; 83735; 84443

== ENCOUNTER → 2022-05-15 10:37 | Outpatient (BNVA) | payer OTHER, SELFPAY | PROVIDERS: PCP Internal Medicine; Referring Provider Internal Medicine; Visit Provider Internal Medicine Cardiovascular Disease | DX: R00.2 Palpitations (principal) | CPT/HCPCS: 93005; 99212 ==

== ENCOUNTER 2022-05-17 13:17 | Outpatient (REF) | payer OTHER, SELFPAY ==
--- NOTE | ~2022-05-17 | MM_ITS ---
EXAMINATION: MM SCREENING DIGITAL BREAST TOMOSYNTHESIS, BILATERAL CLINICAL INFORMATION: Screening. Asymptomatic. COMPARISON: Mammography: 04/05/2021, 03/21/2020, 08/28/2018 TECHNIQUE: Digital breast tomosynthesis is performed in both the craniocaudal and mediolateral oblique views along with computer-aided detection (CAD). Synthesized 2D images are generated from the tomosynthesis. FINDINGS: There are scattered areas of fibroglandular density (ACR BI-RADS breast composition Category b). There are no significant masses, abnormal calcifications, or other abnormalities. Stable oval asymmetry mid 3:00 left breast is similar to prior studies. No developing density. No architectural abnormality. Again, there are scattered bilateral vascular calcifications as well as punctate round isolated and grouped calcifications, many dermal. No significant changes from prior studies. MM/MM tomosynthesis screening BI IMPRESSION: No mammographic evidence of malignancy. ASSESSMENT: BI-RADS 2: Benign RECOMMENDATION: Routine annual mammography screening. This patient's information was entered into a reminder system with a target due date for their next mammogram.
== END 2022-05-17 13:18 | disposition home or self-care (01) ==
LOC: HO.MAMMO 13:17
PROVIDERS: PCP Internal Medicine; Visit Provider Internal Medicine
DX: Z12.31 Encounter for screening mammogram for malignant neoplasm of breast (principal)
CPT/HCPCS: 77063; 77067

== ENCOUNTER 2025-02-14 12:31 | Emergency (ER) | payer MEDICARE, SELFPAY ==
--- NOTE | ~2025-02-14 | XR_ITS ---
EXAMINATION: XR CHEST CLINICAL INFORMATION: weakness COMPARISON: June 19, 2021 TECHNIQUE: 2 views of the chest were obtained. FINDINGS: No significant abnormality is noted involving the heart, lungs, mediastinum, or soft tissues. Mild to moderate degenerative changes are present in the thoracic spine. XR/XR chest 2V IMPRESSION: No acute disease. Electronically signed by: Yves Giraldo MD 02/14/2025 01:02 PM [facility]
--- NOTE | 2025-02-14 12:33 | ECG_ITS ---
Test Reason : CP Blood Pressure : */* mmHG Vent. Rate : 88 BPM Atrial Rate : 88 BPM P-R Int : 154 ms QRS Dur : 84 ms QT Int : 342 ms P-R-T Axes : 53 -1 41 degrees QTcB Int : 413 ms Normal sinus rhythm Normal ECG When compared with ECG of 19-Jun-2021 12:52, No significant change was found Referred By: Generic ED Physician Electronically Signed By: VITALY TEJEDA MD
[2025-02-14 12:36] VITALS: BP 156/86; PULSE 87; RESP 16; TEMP 36.6; O2SAT 98; BMI 24.5
--- NOTE | 2025-02-14 12:41 | ED_ITS ---
HPI - General Adult General Chief complaint: General Medical Stated complaint: CP, Nausea, body aches Time Seen by Provider: 02/14/25 16:08 Source: patient and family Mode of arrival: ambulatory Limitations: no limitations History of Present Illness ED Provider: Dr. Mihaela De La Rosa HPI narrative: Patient comes to the emergency room accompanied by her daughter. Patient is visiting from [place]. According to the patient, every time that she moves her head from left to right, she has spinning sensation that lasts for a few sec. denies any other neurological deficit. Patient states that she has not been sick. Patient complaining of body pain, head to toe . patient has been taking acetaminophen without significant relief. Patient can not take ibuprofen due to history of chronic kidney disease. Patient denies any recent URI symptoms. Patient states that a few weeks ago, before coming in to [place], the patient was treated for a UTI. At this time, patient denies any hematuria or dysuria. Related Data Home Medications ?Medication ?Instructions ?Recorded ?Confirmed aspirin 81 mg tablet,delayed 81 mg PO DAILY 02/07/20 0 05/15/22 release (Adult Low Dose Aspirin) Previous Rx's ?Medication ?Instructions ?Recorded compression stockings #1 ea 12/13/20 metoprolol succinate 25 mg 25 mg PO DAILY 90 days #90 tabs 06/13/21 tablet,extended release 24 hr blood-glucose meter (Turnip Truck IIyle #1 ea 12/19/21 Lite Meter kit) atorvastatin 10 mg tablet 10 mg PO QPM 90 days #90 tab s 02/02/22 lisinopril 40 mg tablet 40 mg PO DAILY #90 tabs 01/06 12/27 calcium carbonate (Oyster Shell 500 mg PO DAILY 90 day s #90 tabs 02/21/22 Calcium 500) cholecalciferol (vitamin D3) 50 50 mcg PO DAILY 90 day s #90 caps 03/11/22 mcg (2,000 unit) capsule etanercept 50 mg/mL (1 mL) 50 mg subcut QWEEK #4 mL subcutaneous pen injector (Enbrel SureClick) omeprazole 20 mg capsule,delayed 20 mg PO DAILY 90 day s #90 caps 04/03/22 release acetaminophen 325 mg tablet 650 mg (2 x 325 mg) PO Q6H PRN 05/06/22 pain 30 days #240 tabs blood sugar diagnostic (FreeStyle #100 ea 02/01/23 Lite Strips) lancets 28 gauge (FreeStyle #100 ea 05/08/22 Lancets) metformin 500 mg tablet 500 mg PO QPM #90 tabs 08/01 meclizine 50 mg tablet 50 mg PO BID PRN dizziness # 14 tabs 02/14/25 Allergies Allergy/AdvReac Type Severity Reaction Status Date / Time ibuprofen Allergy Intermediate mouth Verified 02/14/25 12:42 swelling Review of Systems 2 Review of Systems: Constitutional : No Weight loss, No Fever, No Chills, No Night Sweats, No Fatigue, No Malaise ENT/Mouth : No Hearing loss, No Ear Pain, No Nasal Congestion, No Sinus Pain, No Hoarseness, No sore throat, No Rhinorrhea, No Swallowing Difficulty Eyes: No Eye Pain, No Swelling, No Redness, No Foreign Body, No Discharge, No Vision Changes Cardiovascular : No Chest Pain, No SOB, No Dyspnea on Exertion, No Orthopnea, No Edema, No Palpitations Respiratory : No Cough, No Sputum, No Wheezing, No Smoke Exposure, No Dyspnea Gastrointestinal : No Nausea, No Vomiting, No Diarrhea, No Constipation, No abdominal Pain, No Hematochezia, No Melena Genitourinary : no irregular bleeding, No Dysuria, No Urinary Frequency, No Hematuria, No Urinary Incontinence, No Urgency, No Flank Pain, No Urinary Flow Changes, No Hesitancy Musculoskeletal : Complaining of diffuse body pains, ?head to toe? 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 Anemia of chronic disease GERD (gastroesophageal reflux disease) Essential hypertension Hyperlipidemia LDL goal <100 Hypothyroid Osteoporosis Rheumatoid arthritis Hypercholesteremia Primary tongue squamous cell carcinoma Diabetes mellitus HTN (hypertension) Surgical History History of colonoscopy History of tubal ligation Hx of blepharoplasty Hx of cataract extraction Hx of hysterectomy Hx of squamous cell carcinoma excision Family History Family History (Updated 05/15/22 @ 11:16 by Kennedi Flores) Father Hx of colon cancer, stage IV Stomach cancer Mother Hypertension Maternal Aunt Vaginal cancer Sister Breast cancer Social History Social History Household Members: Children Household Members Other:: Lives with family near by Housing: Apartment Are you a primary career representative to a significant other at home: No Do you presently have visiting nurse or other home services: No Alcohol intake: never Patient Tobacco Use Status: Never used Tobacco Smoked in Last 30 Days: No e-Cigarette/Vaping Use: Never Used Second Hand Smoke Exposure: No Use of substances other than those prescribed or required for medical reasons: No Advance Directives: Yes Advance Directives on File: Yes Advance Directives Date on File: 02/14/25 Do you have a plan to hurt others: No Plan service: No Current occupational status: retired 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 Oriented X3. No acute distress. Patient is ambulatory Eyes: Pupils equal, round and reactive to light. No nystagmus ENT: Pharynx normal. Neck: Normal inspection. Neck supple. No lymph nodes noted. No crepitus CVS: Normal heart rate and rhythm. Pulses normal. Normal S1 and S2 Respiratory: No respiratory distress. Breath sounds normal. No Wheezing. No rales Abdomen: Soft and nontender. No rigidity. No distention. Skin: Skin warm and dry. Normal skin color. Normal skin turgor. Extremities: No lower extremity edema. No Lacerations. No Rash Neuro: Oriented X 3. No motor deficit. No sensory deficit. Moving all extremities. No slurred speech. CN 2 through 12 grossly intact Psych: calm, cooperative, normal affect Vital Signs: Vital Signs - 24 hr 02/14/25 12:36 02/14/25 15:15 02/14/25 18:12 Temperature 97.8 F Pulse Rate 87 72 78 Respiratory Rate 16 18 16 Blood Pressure 156/86 H 145/65 H 160/78 H Pulse Oximetry 98 98 97 Oxygen Delivery Method Room Air Room Air Room Air BMI result Body Mass Index 24.5 Course Course Course Narrative: Rapid medical examination performed in triage by Ludivina Melissa PA-C: Patient is an 84 year old assigned female at presenting to the emergency department with pain all over and intermittent dizziness. Detailed physical exam and review of systems are deferred to the speech and language clinician. EKG, labs, swabs ordered. Patient placed back in the waiting room pending room availability and results. Medications Administered Discontinued Medications Generic Name Dose Route Start Last Admin Trade Name Freq PRN Reason Stop Dose Admin Meclizine HCl 50 mg 02/14/25 16:31 02/14/25 16:49 Meclizine Hcl 25 Mg Tablet PO 02/14/25 16:32 50 mg ONCE ONE Administration Medical Decision Making Medical Decision Making [facility] Narrative: My interpretation of EKG: Normal sinus rhythm, heart rate 88, necessitating the patient elevation, no T-wave inversion, QTC 413 My interpretation of labs: No significant abnormality in patient's hematology, chemistry shows a creatinine of 1.48. For patient, this seems to be baseline for her. 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 Serology negative for influenza RSV and COVID Chest x-ray does not show any acute abnormality Urinalysis negative Differential Diagnosis Differential Diagnoses: The differential diagnosis associated with the presentation includes (BPPV, viral syndrome, UTI) Admission/Observation Consideration of admission/observation: Escalation of care including admission/observation considered (Can patient's description of symptoms, observation was considered) Lab Data [facility] Lab Attestation statement: I reviewed the patient's lab results. 02/14/25 13:01 02/14/25 13:01 Labs: Lab Results 02/14/25 02/14/25 Range/Units 13:01 17:52 WBC 7.8 (4.8-10.8) X10*3/uL RBC 3.73 L (4.20-5.50) X10*6/uL Hgb 10.3 L (12.0-16.0) g/dl Hct 33.2 L (37.0-47.0) % MCV 89.0 (80.0-98.0) fL MCH 27.6 (27.0-33.0) pg MCHC 31.0 (31.0-35.0) g/dl RDW 13.8 (11.0-16.0) % Plt Count 279 (160-400) X10*3/uL MPV 9.8 (9.4-12.3) fL Immature Gran % (Auto) 0.6 H (0.0-0.4) % Neut % (Auto) 59.4 (45-73) % Lymph % (Auto) 25.0 (20-40) % [place] % (Auto) 11.7 H (2-11) % Eos % (Auto) 2.7 (0-4) % Baso % (Auto) 0.6 (0-2) % Lymph # (Auto) 1.9 (1.2-4.9) X10*3/uL [place] # (Auto) 0.9 (0.1-1.2) X10*3/uL Eos # (Auto) 0.2 (0.0-0.4) X10*3/uL Baso # (Auto) 0.1 (0.0-0.2) X10*3/uL Abs Immat Gran (auto) 0.05 H (0.00-0.03) X10*3/uL Absolute Neuts (auto) 4.6 (2.0-8.3) x10*3/uL Absolute Nucleated RBC 0.000 (0.0-0.012) X10*3/uL Nucleated RBC % (auto) 0.0 (0.0-0.2) /100WBC Sodium 138 (135-145) mmol/L Potassium 4.8 (3.3-5.1) mmol/L Chloride 105 (96-108) mmol/L Carbon Dioxide 24 (22-29) mmol/L Anion Gap 14 (12-20) BUN 36 H (9-16) mg/dL Creatinine 1.48 H (0.5-1.4) mg/dL Estim Creat Clear Calc 23.4 Estimated GFR 33 Random Glucose 109 (60-115) mg/dL Calcium 9.7 (8.4-10.2) mg/dL Magnesium 2.0 (1.6-2.6) mg/dL Total Bilirubin 0.3 (0.0-1.0) mg/dL AST 19 (5-31) U/L ALT 13 (0-31) U/L Alkaline Phosphatase 71 (39-117) U/L Total Creatine Kinase 48 (26-140) U/L Troponin I High Sens 3.6 (<3.5-17.0) ng/L Total Protein 8.1 H (6.5-8.0) g/dL Albumin 4.3 (3.5-5.0) g/dL Urine Color Yellow Urine Appearance Clear Urine pH 5.5 (5.0-9.0) Ur Specific Brandon 1.010 (1.005-1.025) Urine Protein 30 (1+) H (Neg-Trace) mg/dL Urine Glucose (UA) Negative (Negative) mg/dL Urine Ketones Negative (Negative) mg/dL Urine Blood Negative (Negative) Urine Nitrite Negative (Negative) Ur Leukocyte Esterase Negative (Negative) Influenza Type A (PCR) NEGATIVE (Negative) Influenza Type B (PCR) NEGATIVE (Negative) RSV RNA Qual (PCR) NEGATIVE (Negative) SARS-CoV-2 RNA (RT-PCR) NEGATIVE (Negative) Independent Interpretation I performed an independent interpretation of an: EKG Independent Historian Clinical information obtained from an independent historian. History obtained from or confirmed by: Other (Patient's daughter) Tests considered The following testing was considered but not selected: Considered getting a CT scan of the head. However, patient's symptoms are restricted to head movement. Patient has good posterior, good truncal stability, normal gait, no dizziness at this time Critical Care Time Critical Care Time Critical Care Time: Yes Total Critical Care Time: 35 Attestation: I have personally provided critical care time. Time includes review of lab data, radiology results, discussion with consultants, and monitoring for potential decompensation. Intervention performed as documented. Discharge Plan Discharge Clinical Impression: BPPV (benign paroxysmal positional vertigo) Patient Disposition: Home, Self-Care Instructions: Benign Paroxysmal Positional Vertigo (ED), Viral Syndrome (ED) Additional Instructions: Please follow-up with your primary care physician tomorrow. If you have any worsening or new symptoms, please return to the emergency room or call 911 Prescriptions: New meclizine 50 mg tablet 50 mg PO BID PRN (Reason: dizziness) Qty: 14 0RF No Action (DME) compression stockings 20 mmHg See Rx Instructions .Route .MEDSUPPLY Qty: 1 0RF Rx Instructions: As directed metoprolol succinate 25 mg tablet extended release 24 hr 25 mg PO DAILY 90 Days Qty: 90 3RF (DME) blood-glucose meter [FreeStyle Lite Meter] Kit See Rx Instructions .Route Qty: 1 0RF Rx Instructions: As directed lisinopril 40 mg tablet 40 mg PO DAILY Qty: 90 3RF atorvastatin 10 mg tablet 10 mg PO QPM 90 Days Qty: 90 3RF calcium carbonate [Oyster Shell Calcium 500] 500 mg calcium (1,250 mg) tablet 500 mg PO DAILY 90 Days Qty: 90 1RF Enbrel SureClick 50 mg/mL (1 mL) pen injector 50 mg subcut QWEEK Qty: 4 0RF omeprazole 20 mg capsule,delayed release(DR/EC) 20 mg PO DAILY 90 Days Qty: 90 0RF acetaminophen 325 mg tablet 650 mg PO Q6H PRN (Reason: pain) 30 Days Qty: 240 2RF (DME) FreeStyle Lite Strips Strip See Rx Instructions .Route Qty: 100 3RF Rx Instructions: Use 1 test strip once a day (DME) lancets [FreeStyle Lancets] 28 gauge misc See Rx Instructions .Route Qty: 100 3RF Rx Instructions: Use 1 lancet once a day metformin 500 mg tablet 500 mg PO QPM Qty: 90 1RF cholecalciferol (vitamin D3) 50 mcg (2,000 unit) capsule 50 mcg PO DAILY 90 Days Qty: 90 1RF aspirin [Adult Low Dose Aspirin] 81 mg tablet,delayed release (DR/EC) 81 mg PO DAILY Print Language: Maori
[2025-02-14 13:05] LABS: MANUAL DIFF FLAG NO
[2025-02-14 13:11] LABS: Hematocrit 33.2 % (37.0-47.0); Hemoglobin 10.3 g/dl (12.0-16.0); Imm Gran Abs Auto 0.05 X10*3/uL (0.00-0.03); Imm Gran Pct Auto 0.6 % (0.0-0.4); Lymphocytes Absolute Auto 1.9 X10*3/uL (1.2-4.9); Mean Corpuscular HGB Conc 31.0 g/dl (31.0-35.0); Mean Corpuscular Hemoglobin 27.6 pg (27.0-33.0); Mean Corpuscular Volume 89.0 fL (80.0-98.0); NRBC Abs Auto 0.000 X10*3/uL (0.0-0.012); NRBC Pct Auto 0.0 /100WBC (0.0-0.2); Platelet Count 279 X10*3/uL (160-400); Red Blood Count 3.73 X10*6/uL (4.20-5.50); White Blood Count 7.8 X10*3/uL (4.8-10.8)
[2025-02-14 13:22] LABS: Alanine Aminotransferase 13 U/L (0-31); Albumin Level 4.3 g/dL (3.5-5.0); Alkaline Phosphatase 71 U/L (39-117); Anion Gap 14 (12-20); Aspartate Amino Transferase 19 U/L (5-31); Blood Urea Nitrogen 36 mg/dL (9-16); Calcium 9.7 mg/dL (8.4-10.2); Carbon Dioxide 24 mmol/L (22-29); Chloride 105 mmol/L (96-108); Creatinine Clr Calc Pharmacy 23.4; Estimated Glomerular Filt Rate 33; Magnesium 2.0 mg/dL (1.6-2.6); Potassium 4.8 mmol/L (3.3-5.1); Sodium 138 mmol/L (135-145); Total Protein 8.1 g/dL (6.5-8.0)
[2025-02-14 13:29] LABS: Troponin-I High Sensitivity 3.6 ng/L (<3.5-17.0)
[2025-02-14 13:43] LABS: Resp Syncy Virus RNA Qual PCR NEGATIVE (Negative); SARS COV2 PCR INHOUSE NEGATIVE (Negative)
[2025-02-14 15:15] VITALS: BP 145/65; PULSE 72; RESP 18; O2SAT 98
--- OUTSIDE RECORDS SUMMARY | 2025-02-14 17:49 | XMS_ITS | Clinical Summary ---
Author Organization [facility] ity Address [address] [place] [address] Care Team Providers Care Social Contact Worker Name Role Phone Unavailable Primary Care Provider Unavailabl e Social History Tobacco Use Types Packs/Day Years Used Date Smoking Tobacco: Never Assessed Comments Unknown Sex and Gender Information Value Date Recorded Sex Assigned at Not on file Legal Sex Female 4:54 AM EST Gender Identity Not on file Sexual Orientation Not on file Plan of Treatment Health Maintenance Due Date Last Done Comments Zoster Vaccines (1 of 2) 1988 RSV Immunization Adult Patients (1 - 1-dose 75+ series) 2013 Depression Screening 04/07/2024 COVID-19 Vaccine ( season) 2024 05/15/2022, 09/05/2021, 04/05/2021, Additional history exists Influenza Vaccine (#1) 2024 , 03/03/2019, 02/23/2018, Additional history exists DTaP,Tdap,and Td Vaccines (2 - Td or Tdap) 03/03/2029 03/03/2019 Pneumococcal Vaccine: 50+ Years Completed 12/17/2016, 04/26/2015 HIB Vaccines Aged Out No longer eligi ble based on patient's age to complete this topic HPV Vaccines Aged Out No longer eligi ble based on patient's age to complete this topic Hepatitis A Vaccines Aged Out No long er eligible based on patient's age to complete this topic Hepatitis B Vaccines Aged Out No long er eligible based on patient's age to complete this topic IPV Vaccines Aged Out No longer eligi ble based on patient's age to complete this topic MMR Vaccines Aged Out No longer eligi ble based on patient's age to complete this topic Meningococcal ACWY Vaccine Aged Out N o longer eligible based on patient's age to complete this topic Meningococcal B Vaccine Aged Out No l onger eligible based on patient's age to complete this topic RSV Immunization Patients Under 20 months Aged Out No longer eligible based on patient's age to complete this topic Varicella Vaccines Aged Out No longer eligible based on patient's age to complete this topic
--- OUTSIDE RECORDS SUMMARY | 2025-02-14 17:49 | XMS_ITS | Encounter Summary ---
Author Organization [employer] Address [address] [place] [address] Care Team Providers Care Insurance Sales Associate Name Role Phone Unavailable Primary Care Provider Unavailabl e Encounter Details Date Type Department Care Team (Late st Contact Info) Description 03/06/2022 Abstract [facility] [address] [place] [address] Dental, Provider, DDS Social History Tobacco Use Types Packs/Day Years Used Date Smoking Tobacco: Never Assessed Comments Unknown Sex and Gender Information Value Date Recorded Sex Assigned at Female 02/04/2022 10:18 AM EDT Legal Sex Female 10:18 AM EDT Gender Identity Female 02/04/2022 10:18 AM EDT Sexual Orientation Choose not to disclose 2021 10:18 AM EDT COVID-19 Exposure Response Date Recorded In the last 10 days, have yo u been in contact with someone who was confirmed or suspected to have Coronavirus/COVID-19? No / Unsure 03/08/2022 2:29 PM EST documented as of this encounter Plan of Treatment Not on file documented as of this encounter Visit Diagnoses Not on filedocumented in this encounter
--- OUTSIDE RECORDS SUMMARY | 2025-02-14 17:49 | XMS_ITS | Clinical Summary ---
Author Organization [facility] Address [address] [place] [address] Phone Care Team Providers Care Partner Management Consultant Name Role Phone Ana Paula Klein MD Primary Care Provider [phone] Allergies Active Allergy Reactions Criticality Noted Date Comments Ibuprofen Swelling 05/29/2020 Medications acetaminophen (TYLENOL) 325 MG tablet Take 1 tablet by mouth if needed Active atorvastatin (LIPITOR) 10 MG tablet Take 1 tablet by mouth 1 (one) time each day Active etanercept (Enbrel) 50 MG/ML injection 1 (one) time per week Active omeprazole (PriLOSEC) [address] capsule Take 20 mg by mouth 1 (one) time each day Active traZODone (DESYREL) 50 MG tablet Take 1 tablet by mouth 1 (one) time each day Active aspirin (ST LATASHA) 81 MG EC tablet Take 81 mg by mouth 1 (one) time each day Active lisinopril (PRINIVIL,ZESTRI L) 40 MG tablet Take 40 mg by mouth 1 (one) time each day 08/11/2020 Active metFORMIN (GLUCOPHAGE) 500 MG tablet Take 500 mg by mouth at bed time 08/11/2020 Active metoprolol succinate XL (TOPROL XL) 25 MG 24 hr tablet Take 1 tablet by mouth 1 (one) time each day 11/02/2020 Active Calcium Carbonate-Vitami n D (OYSTER SHELL CALCIUM 500 + D PO) Take 1 tablet by mouth 1 (one) time each day Active Oyster Shell Calcium 500 MG tablet Take 1 tablet by mouth 2 (two) times a day 04/08/2021 Active FeroSul 325 (65 Fe) MG tablet TAKE 1 TABLET BY MOUTH DAILY 100 tablet 2 01/04/2022 Active Active Problems Problem Noted Date Diagnosed Date Stage 3b chronic kidney disease 12/24/2021 Anemia of chronic renal failure 05/24/2020 Chronic kidney disease stage 3 05/24/2020 Hypertensive disorder 05/24/2020 Hypertensive heart disease without heart failure 05/24/2020 Microalbuminuria 05/24/2020 Normocytic anemia 05/24/2020 Renal disorder due to type 2 diabetes mellitus 0 05/24/2020 Resolved Problems Problem Noted Date Diagnosed Date Resolved Date Gastroesophageal reflux disease 05/24/2020 12/28/2020 Hypercholesterolemia 05/24/2020 021 Type 2 diabetes mellitus 05/24/2020 Family History Medical History Relation Comments Cancer Father Hypertension Father Hypertension Mother Hypertension Sibling Relation Status Comments Father Mother Sibling Social History Tobacco Use Types Packs/Day Years Used Date Smoking Tobacco: Never Smokeless Tobacco: Never Comments Unknown Sex and Gender Information Value Date Recorded Sex Assigned at Not on file Legal Sex Female 4:50 PM EST Gender Identity Not on file Sexual Orientation Not on file Last Filed Vital Signs Vital Sign Reading Time Taken Comments Blood Pressure 139/65 12/24/2021 2:34 PM EDT Pulse 78 12/24/2021 2:34 PM EDT Temperature - - Respiratory Rate - - Oxygen Saturation 98% 12/24/2021 2:34 PM EDT Inhaled Oxygen Concentration - - Weight 69.2 kg (152 lb 9.6 oz) 12/24/2021 2:34 P M EDT Height 152.4 cm (5') 04/29/2019 12:00 PM EST Body Mass Index 29.8 04/29/2019 12:00 PM EST Plan of Treatment Health Maintenance Due Date Last Done Comments Pneumococcal Vaccine: 50+ Ye ars (2 of 2 - PPSV23, PCV20, or PCV21) 06/21/2015 04/26/2015 Diabetes: Hemoglobin A1C 05/07/2020 Diabetes: Ophthalmology Exam 05/07/2020 Diabetes: Pedal Pulse Checked 05/07/2020 Diabetes: Sensory Foot Exam 05/07/2020 Diabetes: Visual Foot Exam 05/07/2020 Influenza Vaccine (#1) 2024 Pneumococcal Vaccine: Peds ( 0 to 5 Years) and At-Risk Patients (6 to 49 Years) Discontinued 04/26/2015 Hepatitis B Vaccine Aged Out No longe r eligible based on patient's age to complete this topic Insurance [facility] ([id number]) [facility] ([id number]) Care Teams Partner Management Consultant Relationship Specialty Start Date End Date Ana Paula Klein MD [address] [place], [place] PCP - General 04/17/20
--- OUTSIDE RECORDS SUMMARY | 2025-02-14 17:49 | XMS_ITS | Clinical Summary ---
Author Organization [employer] Address [address] [place] [address] Care Team Providers Care Field Investigator Name Role Phone Unavailable Primary Care Provider Unavailabl e Allergies Active Allergy Reactions Criticality Noted Date Comments Ibuprofen Swelling 05/29/2020 Medications Aspirin (Vazalore) 81 MG capsule Take 1 capsule by mouth at bed time. 11/01/2021 Active atorvastatin (Lipitor) 10 MG tablet Take 1 tablet by mouth at bed time. Active calcium carbonate (Os-Willi) 1250 (500 Ca) MG tablet Active etanercept (Enbrel) injection Inject under the skin. Active lisinopril (Qbrelis) 1 mg/mL oral solution Take by mouth. Active metFORMIN (Glucophage) 500 MG/5ML solution oral solution Take 10 mL by mouth every 12 (twelve) hours. Active metoprolol succinate XL (Kapspargo Sprinkle) 25 MG 24 hr capsule Take by mouth. Active omeprazole (PriLOSEC) [address] capsule Take by mouth. Active Immunizations Immunization Administration Dates Next Due Influenza injectable quadriv alent preservative free 01/13/2020 Influenza, High Dose Seasona l, Preservative Free 03/03/2019,02/23/2018,01/06/2017 Pfizer Covid-19 Vaccine 12+ 09/05/2021,1 ,06/14/2020,05/23 Pfizer Covid-19 Vaccine 12+ Bivalent 05/15/2022 Pneumococcal Polysaccharide PPSV23 12/17/2016 TD (adult), 2 Lf tetanus tox oid, preservative free, adsorbed 03/03/2019 Social History Tobacco Use Types Packs/Day Years Used Date Smoking Tobacco: Never Smokeless Tobacco: Never Tobacco Cessation:Counseling Given: Not Answered Comments Unknown Sex and Gender Information Value Date Recorded Sex Assigned at Female 02/04/2022 10:18 AM EDT Legal Sex Female 10:18 AM EDT Gender Identity Female 02/04/2022 10:18 AM EDT Sexual Orientation Choose not to disclose 2021 10:18 AM EDT Last Filed Vital Signs Vital Sign Reading Time Taken Comments Blood Pressure 132/78 03/18/2022 8:59 AM EST Pulse - - Temperature - - Respiratory Rate - - Oxygen Saturation - - Inhaled Oxygen Concentration - - Weight - - Height - - Body Mass Index - - Plan of Treatment Health Maintenance Due Date Last Done Comments Dental Oral Exam 1938 Dental Prophylaxis 1938 Dental X-Ray: Bitewings 1938 Dental X-Ray: Full Mouth 1938 Depression Screening 1938 Lipid Panel 1938 SDOH Screening 1938 Alcohol/Substance Use Screening 1950 Zoster Vaccines (1 of 2) 1988 RSV Patients and Patients Aged 60 years or older (1 - 1-dose 75+ series) 2013 Pneumococcal Vaccine: 50+ Years (2 of 2 - PCV) 12/17/2017 12/17/2016 DTaP/Tdap/Td Vaccines (1 - Tdap) 03/04/2019 03/03/2019 Tobacco Screening 03/18/2023 03/18/2022 COVID-19 Vaccine ( season) 2024 05/15/2022, 09/05/2021, 04/05/2021, Additional history exists Influenza Vaccine (#1) 2024 , 03/03/2019, 02/23/2018, Additional history exists HIB Vaccines Aged Out No longer eligi [...] patient's age to complete this topic Meningococcal Vaccine Aged Out No sarah beth agustin eligible based on patient's age to complete this topic RSV under 20 months Aged Out No longe r eligible based on patient's age to complete this topic Rotavirus Vaccines Aged Out No longer eligible based on patient's age to complete this topic Insurance [facility] < [address] [id number] [id number]
[2025-02-14 18:06] LABS: Appearance Urine Clear; Glucose Urine UA Negative (Negative); PH 5.5 (5.0-9.0); Specific Gravity - Urine 1.010 (1.005-1.025); UMIC TRIGGER UACC YES
[2025-02-14 18:12] VITALS: BP 160/78; PULSE 78; RESP 16; O2SAT 97
[2025-02-14 19:46] VITALS: BP 160/78; PULSE 78; RESP 16; TEMP 36.6; O2SAT 97
== END 2025-02-14 19:25 | disposition home or self-care (01) ==
PROVIDERS: Physician Assistant Medical; Emergency Provider Emergency Medicine
DX: H81.10 Benign paroxysmal vertigo, unspecified ear (principal); R07.9 Chest pain, unspecified; R11.0 Nausea; R53.1 Weakness; Z03.818 Encounter for observation for suspected exposure to other biological agents ruled out; E11.9 Type 2 diabetes mellitus without complications; I10 Essential (primary) hypertension; E78.5 Hyperlipidemia, unspecified
CPT/HCPCS: 51701; 51798; 71046; 80053; 81001; 82550; 83735; 84484; 85025; 87637; 93005; 99283; 99285

== ENCOUNTER → 2025-02-14 12:33 | Outpatient (BNV) | payer MEDICARE, SELFPAY | PROVIDERS: Emergency Provider Emergency Medicine; Visit Provider Internal Medicine Cardiovascular Disease | DX: R07.9 Chest pain, unspecified (principal) | CPT/HCPCS: 93010 ==

== ENCOUNTER → 2025-02-14 12:42 | Outpatient (BNV) | payer MEDICARE, SELFPAY | PROVIDERS: Visit Provider Radiology Diagnostic Radiology | DX: R53.1 Weakness (principal) | CPT/HCPCS: 71046 ==